=== PATIENT | female | born 1990 | race African-American/Black ===

== ENCOUNTER 2017-11-10 07:57 | Inpatient (IN) | payer BC ==
[2017-11-10] MEDS ORDERED: Sodium Chloride 0.9% 10 ML Syringe FLUSH PRN ×2 (08:40→18:14)
[2017-11-10] MEDS ORDERED: Ampicillin 2 GM in Sodium Chloride 0.9% 100 ML IV ONE (09:00)
[2017-11-10] MEDS ORDERED: Oxytocin/Lactated Ringers 10 UNIT/1,000 ML BAG IV SCH ×2 (09:00)
[2017-11-10] MEDS: Lactated Ringers 1,000 ML IV SCH ×4 (09:13→18:34)
[2017-11-10] MEDS ORDERED: fentaNYL 100 MCG/2 ML SDV EPIDUR PRN (10:05)
[2017-11-10] MEDS ORDERED: Ondansetron 4 MG/2 ML SDV IVPUSH PRN ×2 (10:05→19:07)
[2017-11-10] MEDS ORDERED: ePHEDrine 50 MG/ML SDV IVPUSH PRN ×3 (10:05→20:43)
--- NOTE | 2017-11-10 10:08 | PCM.PREANE ---
Preanesthetic Assessment - Anesthesia/Transfusion/Family Hx Anesthesia History: Prior Anesthesia Without Reaction (epidural only) Family History of Anesthesia Reaction: No Transfusion History: No Prior Transfusion(s) Intubation History: Unknown - Review of Systems General: No Symptoms Pulmonary: No Symptoms Cardiovascular: No Symptoms Gastrointestinal: No Symptoms Neurological: No Symptoms Other: Reports: None - Physical Assessment NPO Status Date: 11/09/17 NPO Status Time: 18:00 Pulse: 63 O2 Sat by Pulse Oximetry: 100 Respiratory Rate: 15 Blood Pressure: 110/63 Temperature: 36.3 C Vital Signs: Last Vital Signs Temp 36.3 C 11/10/17 08:25 Pulse 63 11/10/17 08:25 Resp 15 11/10/17 08:25 BP 110/63 11/10/17 08:25 Pulse Ox 100 11/10/17 08:25 Height: 1.65 m Weight: 85.275 kg ASA Class: 2 Mental Status: Alert & Oriented x3 Airway Class: Mallampati = 2 Dentition: Reports: Normal Dentition, Caries Thyro-Mental Finger Breadths: 3 Mouth Opening Finger Breadths: 3 ROM/Head Extension: Full Lungs: Clear to Auscultation, Normal Respiratory Effort Cardiovascular: Regular Rate, Regular Rhythm, No Murmurs - Lab Values: Laboratory Last Values WBC 7.12 K/mm3 (3.98-10.04) 11/10/17 09:05 RBC 4.10 M/mm3 (3.98-5.22) 11/10/17 09:05 Hgb 9.2 gm/L (11.2-15.7) L 11/10/17 09:05 Hct 28.7 % (34.1-44.9) L 11/10/17 09:05 MCV 70.0 fl (79.4-94.8) L 11/10/17 09:05 MCH 22.4 pg (25.6-32.2) L 11/10/17 09:05 MCHC 32.1 g/dl (32.2-35.5) L 11/10/17 09:05 RDW Std Deviation 43.0 fL (36.4-46.3) 11/10/17 09:05 Plt Count 200 K/mm3 (182-369) 11/10/17 09:05 Neut % (Auto) 70.5 % (34.0-71.1) 11/10/17 09:05 Lymph % (Auto) 18.3 % (19.3-51.7) L 11/10/17 09:05 Spencer % (Auto) 9.8 % (4.7-12.5) 11/10/17 09:05 Eos % (Auto) 0.3 (0.7-5.8) L 11/10/17 09:05 Baso % (Auto) 0.1 % (0.1-1.2) 11/10/17 09:05 Neut # (Auto) 5.02 K/mm3 (1.56-6.13) 11/10/17 09:05 Lymph # (Auto) 1.30 K/mm3 (1.18-3.74) 11/10/17 09:05 Spencer # (Auto) 0.70 K/mm3 (0.24-0.36) H 11/10/17 09:05 Eos # (Auto) 0.02 K/mm3 (0.04-0.36) L 11/10/17 09:05 Baso # (Auto) 0.01 K/mm3 (0.01-0.08) 11/10/17 09:05 Manual Slide Review Abnormal smear 11/10/17 09:05 Above labs reviewed and noted and within acceptable ranges to proceed with scheduled procedure. 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: - SUBSTANCE USE Smoking Status *Q: Never Smoker Second Hand Smoke Exposure: No Recreational Drug Use History: No - HOME MEDS Home Medications: Home Meds Benzocaine/Menthol [Dermoplast Pain Relief [place]] 1 spray TOP ASDIRECTED PRN #0 canister 09/17/15 [Rx] Docusate Sodium [Colace] 100 mg PO BID PRN #0 cap 09/17/15 [Rx] Ibuprofen [Motrin] 600 mg PO Q4H PRN #0 tablet 09/17/15 [Rx] PNV95/Ferrous Fumarate/FA [ Tablet] 1 tab PO DAILY 10/20/16 [History] - CURRENT (IN HOUSE) MEDS Current Meds: Current Medications Ephedrine Sulfate (Ephedrine Sulfate) 5 mg IVPUSH ASDIRECTED PRN PRN Reason: Hypotension Fentanyl (Sublimaze) 100 mcg EPIDUR Q3H PRN PRN Reason: Pain Fentanyl/Bupivacaine HCl (Fentanyl/Bupivacaine/Ns 2 Mcg-0.125% 100 Ml) 100 ml EPIDUR ASDIRECTED MAULIK Ampicillin Sodium 1 gm/ Sodium (Chloride) 100 mls @ 200 mls/hr IV Q4H MAULIK Lactated Ringer's (Ringers, Lactated) 1,000 mls @ 100 mls/hr IV ASDIRECTED MAULIK Last Admin: 11/10/17 10:01 Dose: 100 mls/hr Oxytocin/Lactated Ringer's (Pitocin In Lr 10 Units/1,000 Ml) 10 unit in 1,000 mls @ 12 mls/hr IV TITRATE MAULIK; 2 MUNITS/MIN PRN Reason: Protocol Oxytocin/Lactated Ringer's (Pitocin In Lr 10 Units/1,000 Ml) 10 unit in 1,000 mls @ 500 mls/hr IV ASDIRECTED MAULIK PRN Reason: Protocol Ondansetron HCl (Zofran) 4 mg IVPUSH ONETIME PRN PRN Reason: Nausea/Vomiting Sodium Chloride (Saline Flush) 10 ml FLUSH ASDIRECTED PRN PRN Reason: Keep Vein Open Discontinued Medications Ampicillin Sodium 2 gm/ Sodium (Chloride) 100 mls @ 200 mls/hr IV ONETIME ONE Stop: 11/10/17 09:29 Last Admin: 11/10/17 09:14 Dose: 200 mls/hr
[2017-11-10] MEDS ORDERED: Bupivacaine/fentaNYL/NS 100 ML Bag EPIDUR SCH (10:15)
[2017-11-10] MEDS: Ampicillin 1 GM in Sodium Chloride 0.9% 100 ML IV SCH ×2 (12:56→16:58)
--- NOTE | 2017-11-10 14:21 | PCM.LDHP ---
L&D History of Present Illness - General Date of Service: 11/10/17 Admit Problem/Dx: Admission Diagnosis/Problem Admission Diagnosis/Problem Source of Information: Patient History Limitations: Reports: No Limitations - History of Present Illness Introduction:: 27 year old at 39w6d here with painful, regular uterine contractions. Breathing through them. Requesting epidural and was 2.5 in clinic. Unable to tolerate good vaginal exam. 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: Social & Family History - Family History Family Medical History: Noncontributory - Tobacco Use Smoking Status *Q: Never Smoker Second Hand Smoke Exposure: No - Caffeine Use Caffeine Use: Reports: Tea - Recreational Drug Use Recreational Drug Use: No H&P Review of Systems - Review of Systems: Review Of Systems: See Below General: Reports: No Symptoms HEENT: Reports: No Symptoms Pulmonary: Reports: No Symptoms Cardiovascular: Reports: No Symptoms Gastrointestinal: Reports: No Symptoms Genitourinary: Reports: Other Musculoskeletal: Reports: No Symptoms Skin: Reports: No Symptoms Psychiatric: Reports: No Symptoms Neurological: Reports: No Symptoms Hematologic/Lymphatic: Reports: No Symptoms Immunologic: Reports: No Symptoms L&D Exam - Exam Exam: See Below - Vital Signs Vital Signs: Last Vital Signs Temp 36.3 C 11/10/17 10:22 Pulse 99 11/10/17 12:00 Resp 15 11/10/17 10:22 BP 112/78 11/10/17 12:00 Pulse Ox 100 11/10/17 10:22 Weight: 85.275 kg - OB Specific Contraction Intensity: Strong Movement: Active Heart Tones: Present Heart Tones per Min: 150 Heart Rate (FHR) Variability: Moderate (6-25 bmp) Presentation: Vertex - Francis Score Francis Score Cervix Position: Anterior Francis Score Consistency: Medium Francis Score Effacement: >80% Francis Score Dilation: 1-2 cm Francis Score Infant's Station: -2 Francis Score Total: 8 - Exam General: Alert, Oriented HEENT: PERRLA, Conjunctiva Clear, EACs Clear, EOMI, Hearing Intact, Mucosa Moist & Manti, Nares Patent, Normal Nasal Septum, Posterior Pharynx Clear, TMs Clear Neck: Supple, Trachea Midline Lungs: Clear to Auscultation, Normal Respiratory Effort Cardiovascular: Regular Rate, Regular Rhythm GI/Abdominal Exam: Normal Bowel Sounds, Soft, Non-Tender, No Organomegaly, No Distention, No Abnormal Bruit, No Mass, Pelvis Stable Rectal Exam: Normal Exam, Normal Rectal Tone Genitourinary: Normal external exam Back Exam: Normal Inspection, Full Range of Motion Extremities: Normal Inspection, Normal Range of Motion, Non-Tender, No Pedal Edema, Normal Capillary Refill Skin: Warm, Dry, Intact Neurological: Cranial Nerves Intact, Reflexes Equal Bilateral Psychiatric: Alert, Normal Affect, Normal Mood - Patient Data Lab Results Last 24 hrs: Laboratory Results - last 24 hr 11/10/17 Range/Units 09:05 WBC 7.12 (3.98-10.04) K/mm3 RBC 4.10 (3.98-5.22) M/mm3 Hgb 9.2 L (11.2-15.7) gm/L Hct 28.7 L (34.1-44.9) % MCV 70.0 L (79.4-94.8) fl MCH 22.4 L (25.6-32.2) pg MCHC 32.1 L (32.2-35.5) g/dl RDW Std Deviation 43.0 (36.4-46.3) fL Plt Count 200 (182-369) K/mm3 Neut % (Auto) 70.5 (34.0-71.1) % Lymph % (Auto) 18.3 L (19.3-51.7) % Dickens % (Auto) 9.8 (4.7-12.5) % Eos % (Auto) 0.3 L (0.7-5.8) Baso % (Auto) 0.1 (0.1-1.2) % Neut # (Auto) 5.02 (1.56-6.13) K/mm3 Lymph # (Auto) 1.30 (1.18-3.74) K/mm3 Dick[place] # (Auto) 0.70 H (0.24-0.36) K/mm3 Eos # (Auto) 0.02 L (0.04-0.36) K/mm3 Baso # (Auto) 0.01 (0.01-0.08) K/mm3 Manual Slide Review Abnormal smear Result Diagrams: 11/10/17 09:05 Problem List Initiated/Reviewed/Updated: Yes Orders Last 24hrs: Active Orders 24 hr Category Date Time Status Activity as Tolerated [RC] PFP Care 11/10/17 08:40 Active Communication Order [RC] ASDIRECTED Care 11/10/17 08:40 Active Notify Provider [RC] ASDIRECTED Care 11/10/17 10:05 Active Notify Provider [RC] PFP Care 11/10/17 08:40 Active Notify Provider [RC] PRN Care 11/10/17 08:40 Active Peripheral IV Care [RC] . DIRECTED Care 11/10/17 08:40 Active Pulse Oximetry [RC] ASDIRECTED Care 11/10/17 10:05 Active Vital Signs [RC] PER UNIT ROUTINE Care 11/10/17 08:40 Active Regular Diet [DIET] Diet 11/10/17 Lunch Active Ampicillin 1 gm Med 11/10/17 13:00 Active Sodium Chloride 0.9% [Normal Saline] 100 ml IV Q4H Bupivacaine/fentaNYL/NS [fentaNYL/Bupivacaine/NS 2 MCG- Med 11/10/17 10:15 Active 0.125% 100 ML] 100 ml EPIDUR ASDIRECTED Lactated Ringers [Ringers, Lactated] 1,000 ml Med 11/10/17 08:45 Active IV ASDIRECTED Ondansetron [Zofran] Med 11/10/17 10:05 Active 4 mg IVPUSH ONETIME PRN Oxytocin/Lactated Ringers [Pitocin in LR 10 Units/1,000 Med 11/10/17 09:00 Active ML] 10 unit in 1,000 ml IV ASDIRECTED Oxytocin/Lactated Ringers [Pitocin in LR 10 Units/1,000 Med 11/10/17 09:00 Active ML] 10 unit in 1,000 ml IV TITRATE Sodium Chloride 0.9% [Saline Flush] Med 11/10/17 08:40 Active 10 ml FLUSH ASDIRECTED PRN ePHEDrine [ePHEDrine Sulfate] Med 11/10/17 10:05 Active 5 mg IVPUSH ASDIRECTED PRN fentaNYL [Sublimaze] Med 11/10/17 10:05 Active 100 mcg EPIDUR Q3H PRN Electronic Heart Tones Ext w TOCO [WOMSER] Oth 11/10/17 08:40 Ordered Routine Electronic Heart Tones Internal [WOMSER] Per Unit Oth 11/10/17 08:40 Ordered Routine Peripheral IV Insertion Adult [OM.PC] Routine Oth 11/10/17 08:40 Ordered Resuscitation Status Routine Resus Stat 11/10/17 08:40 Ordered Medication Orders Ephedrine Sulfate (Ephedrine Sulfate) 5 mg IVPUSH ASDIRECTED PRN PRN Reason: Hypotension Fentanyl (Sublimaze) 100 mcg EPIDUR Q3H PRN PRN Reason: Pain Fentanyl/Bupivacaine HCl (Fentanyl/Bupivacaine/Ns 2 Mcg-0.125% 100 Ml) 100 ml EPIDUR ASDIRECTED MAULIK Ampicillin Sodium 1 gm/ Sodium (Chloride) 100 mls @ 200 mls/hr IV Q4H [facility] Last Admin: 11/10/17 12:56 Dose: 200 mls/hr Lactated Ringer's (Ringers, Lactated) 1,000 mls @ 100 mls/hr IV ASDIRECTED MAULIK Last Admin: 11/10/17 10:55 Dose: 100 mls/hr Infusion: 11/10/17 10:55 Dose: 100 mls/hr Admin: 11/10/17 10:01 Dose: 100 mls/hr Infusion: 11/10/17 10:01 Dose: 100 mls/hr Admin: 11/10/17 09:13 Dose: 100 mls/hr Oxytocin/Lactated Ringer's (Pitocin In Lr 10 Units/1,000 Ml) 10 unit in 1,000 mls @ 12 mls/hr IV TITRATE MAULIK; 2 MUNITS/MIN PRN Reason: Protocol Last Admin: 11/10/17 12:18 Dose: 2 munits/min, 12 mls/hr Oxytocin/Lactated Ringer's (Pitocin In Lr 10 Units/1,000 Ml) 10 unit in 1,000 mls @ 500 mls/hr IV ASDIRECTED MAULIK PRN Reason: Protocol Ondansetron HCl (Zofran) 4 mg IVPUSH ONETIME PRN PRN Reason: Nausea/Vomiting Sodium Chloride (Saline Flush) 10 ml FLUSH ASDIRECTED PRN PRN Reason: Keep Vein Open Assessment/Plan Comment:: Term labor. Desires epidural. Can augment with AROM or pitocin if needed after epidural. Given 2nd baby and degree of discomfort will plan that so certain able to get antibiotics in.
--- NOTE | 2017-11-10 14:22 | PCM.PNLD ---
Labor Progress Note - VS & Meds Vital Signs: Last Vital Signs Temp 36.3 C 11/10/17 10:22 Pulse 99 11/10/17 12:00 Resp 15 11/10/17 10:22 BP 112/78 11/10/17 12:00 Pulse Ox 100 11/10/17 10:22 Active Medications: Current Medications Ephedrine Sulfate (Ephedrine Sulfate) 5 mg IVPUSH ASDIRECTED PRN PRN Reason: Hypotension Fentanyl (Sublimaze) 100 mcg EPIDUR Q3H PRN PRN Reason: Pain Fentanyl/Bupivacaine HCl (Fentanyl/Bupivacaine/Ns 2 Mcg-0.125% 100 Ml) 100 ml EPIDUR ASDIRECTED MAULIK Ampicillin Sodium 1 gm/ Sodium (Chloride) 100 mls @ 200 mls/hr IV Q4H MAULIK Last Admin: 11/10/17 12:56 Dose: 200 mls/hr Lactated Ringer's (Ringers, Lactated) 1,000 mls @ 100 mls/hr IV ASDIRECTED MAULIK Last Admin: 11/10/17 10:55 Dose: 100 mls/hr Oxytocin/Lactated Ringer's (Pitocin In Lr 10 Units/1,000 Ml) 10 unit in 1,000 mls @ 12 mls/hr IV TITRATE MAULIK; 2 MUNITS/MIN PRN Reason: Protocol Last Admin: 11/10/17 12:18 Dose: 2 munits/min, 12 mls/hr Oxytocin/Lactated Ringer's (Pitocin In Lr 10 Units/1,000 Ml) 10 unit in 1,000 mls @ 500 mls/hr IV ASDIRECTED MAULIK PRN Reason: Protocol Ondansetron HCl (Zofran) 4 mg IVPUSH ONETIME PRN PRN Reason: Nausea/Vomiting Sodium Chloride (Saline Flush) 10 ml FLUSH ASDIRECTED PRN PRN Reason: Keep Vein Open Discontinued Medications Ampicillin Sodium 2 gm/ Sodium (Chloride) 100 mls @ 200 mls/hr IV ONETIME ONE Stop: 11/10/17 09:29 Last Admin: 11/10/17 09:14 Dose: 200 mls/hr - Uterine Contractions Uterine Monitoring Mode: External [place] Contraction Intensity: Strong Uterine Resting Tone: Soft - Monitoring Heart Rate (FHR) Variability: Moderate (6-25 bmp) Strip Review: Category I - Vaginal Exam Dilation (cm): 9 Effacement (Percent): 90 Station: -1 Cervical Position: Anterior Sterile Vaginal Exam Performed By: Cecilia Huynh - Labor Progress (Free Text) Labor Progress: Good progress. Nearly complete with BBOW. AROM clear fluid. Did start 2 mu/min pitocin 3 hours after epidural at which time she was 5 cm. Comfortable now.
[2017-11-10] MEDS ORDERED: Metoclopramide 10 MG/2 ML SDV ONE (18:10)
[2017-11-10] MEDS ORDERED: Citric Acid/Sodium Citrate Solution 30 ML Cup ONE (18:10)
[2017-11-10] MEDS ORDERED: Morphine PF 1 MG/ML Amp ONE (18:12)
[2017-11-10] MEDS ORDERED: Metoclopramide 10 MG/2 ML SDV IVPUSH ONE (18:14)
[2017-11-10] MEDS ORDERED: Citric Acid/Sodium Citrate Solution 30 ML Cup PO ONE (18:14)
[2017-11-10] MEDS ORDERED: Lactated Ringers 1,000 ML IV SCH (18:15)
[2017-11-10] MEDS ORDERED: Bupivacaine 0.5% 30 ML SDV ONE (18:24)
[2017-11-10] MEDS ORDERED: ceFAZolin 1 GM Vial ONE (18:44)
[2017-11-10] MEDS ORDERED: Lidocaine 2% with EPINEPHrine 1:200,000 20 ML SDV ONE (18:44)
[2017-11-10] MEDS ORDERED: Lactated Ringers 2,000 ML ONE (18:44)
[2017-11-10] MEDS ORDERED: fentaNYL 100 MCG/2 ML SDV ONE (18:44)
[2017-11-10] MEDS ORDERED: Oxytocin 10 Units/1 ML SDV ONE (18:44)
[2017-11-10] MEDS ORDERED: Ondansetron 4 MG/2 ML SDV ONE (18:44)
[2017-11-10] MEDS ORDERED: Ketorolac 30 MG/ML SDV ONE (18:44)
[2017-11-10] MEDS ORDERED: Phenylephrine 1% 10 MG/ML SDV ONE (18:44)
[2017-11-10] MEDS ORDERED: Meperidine PF 50 MG/ML Syringe IVPUSH PRN (19:07)
[2017-11-10] MEDS ORDERED: diphenhydrAMINE 50 MG/ML SDV IVPUSH PRN ×2 (19:07→20:43)
[2017-11-10] MEDS ORDERED: fentaNYL 100 MCG/2 ML SDV IVPUSH PRN (19:07)
[2017-11-10] MEDS ORDERED: Phenylephrine 1 MG in Sodium Chloride 0.9% 10 ML IV SCH (19:15)
[2017-11-10] MEDS ORDERED: Meperidine PF 50 MG/ML Syringe ONE (19:35)
--- NOTE | 2017-11-10 19:54 | PCM.POSTAN ---
POST ANESTHESIA ASSESSMENT - MENTAL STATUS Mental Status: Alert - VITAL SIGNS Pulse Rate: 97 SaO2: 96 Resp Rate: 19 Blood Pressure: 110/73 Temperature: 37.5 C - RESPIRATORY Respiratory Status: Respiratory Rate WNL, Airway Patent, O2 Saturation Stable - CARDIOVASCULAR CV Status: Pulse Rate WNL, Blood Pressure Stable - GASTROINTESTINAL GI Status: No Symptoms - POST OP HYDRATION Hydration Status: Adequate & Stable
--- NOTE | 2017-11-10 20:14 | PCM.OPNOTE ---
- General Post-Op/Procedure Note Date of Surgery/Procedure: 11/10/17 Operative Procedure(s): primary section Findings: viable female, face presentation, apgars 8/9, normal uterus tubes and ovaries at 1931 Pre Op Diagnosis: face presentation Post-Op Diagnosis: Same Anesthesia Technique: Epidural Primary Surgeon: Cecilia Huynh Anesthesia Provider: Chasity Lucas Saw Feeder: David Rothman Jr Role of Saw Feeder: retraction, pt safety Fluid Replacement, Intraop: 1,200 Output, Urine Amount: 200 EBL in mLs: 600 Complications: None Condition: Good Free Text/Narrative:: Intake & Output 11/10/17 11/10/17 11/10/17 06:59 14:59 22:59 Output Total 200 Balance -200 The patient was taken to the operating room where epidural anesthesia was dosed to surgical levels without difficulty. The patient was prepped and draped in the usual sterile fashion in the dorsal supine position with a leftward tilt. A Pfannenstiel skin incision was made with the scalpel and carried through to the underlying layer of fascia. The fascia was incised in the midline and extended laterally using Johnson scissors. Cammie clamps were used to elevate the superior aspect of the fascial incision, which was elevated, and the underlying rectus muscles were dissected off bluntly and using Johnson scissors. Attention was then turned to the inferior aspect of the fascial incision, which in similar fashion was grasped with Cammie clamps, elevated, and the underlying rectus muscles were dissected off bluntly and using the johnson. The rectus muscles were dissected in the midline. The peritoneum was entered bluntly; this incision was extended superiorly and inferiorly with good visualization of the bladder. The bladder blade was inserted. The vesicouterine peritoneum was identified and entered sharply using Metzenbaum scissors. This incision was extended laterally and the bladder flap was created digitally. The bladder blade was reinserted. The lower uterine segment was incised in a transverse fashion using the scalpel and with digital traction. Clear fluid was noted. The was subsequently delivered by bringing the head to the incision. Body and shoulders followed without difficulty. The cord was clamped and cut. 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 The placenta was delivered spontaneously intact with a three-vessel cord noted. The uterus was exteriorized and cleared of all clots and debris. The uterine incision was repaired in 2 layers using 0 monocryl. Hemostasis was visualized. Hemostasis was visualized bilaterally. The uterus was returned to the abdomen. The uterine incision was reexamined and it was noted to be hemostatic. The pelvis was copiously irrigated. The fascia was closed with 1 PDS suture, and the skin was closed with 3-0 monocryl. Sponge, lap, and instrument counts were correct x2. The patient was stable at the completion of the procedure and was subsequently transferred to the recovery room in stable condition.
[2017-11-10] MEDS ORDERED: Naloxone 0.4 MG/ML SDV IVPUSH PRN (20:43)
[2017-11-10] MEDS ORDERED: Docusate Sodium 100 MG Cap PO PRN (20:43)
[2017-11-10] MEDS ORDERED: Dextrose 5%-Lactated Ringers 1,000 ML IV SCH (20:43)
[2017-11-10] MEDS ORDERED: Lanolin 100% Cream 7 GM Tube TOP PRN (20:43)
[2017-11-10] MEDS ORDERED: Ketorolac 30 MG/ML SDV IVPUSH SCH (21:00)
[2017-11-10] MEDS ORDERED: Bupivacaine 0.25% 10 ML SDV ONE (22:22)
[2017-11-10] MEDS: Simethicone 80 MG Tab.Chew PO SCH (23:47)
[2017-11-11] MEDS: Ketorolac 30 MG/ML SDV IVPUSH SCH ×3 (01:05→13:09)
[2017-11-11] MEDS: Simethicone 80 MG Tab.Chew PO SCH ×4 (08:06→22:07)
--- NOTE | 2017-11-11 08:17 | PCM.PNPP ---
- General Info Date of Service: 11/11/17 Functional Status: Reports: Pain Controlled - Review of Systems General: Reports: No Symptoms HEENT: Reports: No Symptoms Pulmonary: Reports: No Symptoms Cardiovascular: Reports: No Symptoms Gastrointestinal: Reports: No Symptoms Genitourinary: Reports: No Symptoms Musculoskeletal: Reports: No Symptoms Skin: Reports: No Symptoms Neurological: Reports: No Symptoms Psychiatric: Reports: No Symptoms - General Info Date of Service: 11/11/17 - Patient Data Vital Signs - Most Recent: Last Vital Signs Temp 37.1 C 11/11/17 01:01 Pulse 110 H 11/11/17 01:02 Resp 18 11/11/17 06:00 BP 108/51 L 11/11/17 01:01 Pulse Ox 97 11/11/17 06:00 Weight - Most Recent: 85.275 kg I&O - Last 24 Hours: Intake & Output 11/10/17 11/11/17 11/11/17 22:59 06:59 14:59 Intake Total 1375 Output Total 525 1750 Balance 850 -1750 Lab Results - Last 24 Hours: Laboratory Results - last 24 hr 11/10/17 11/10/17 11/11/17 Range/Units 09:05 09:05 06:30 WBC 7.12 12.54 H (3.98-10.04) K/mm3 RBC 4.10 3.12 L (3.98-5.22) M/mm3 Hgb 9.2 L 7.0 L* (11.2-15.7) gm/L Hct 28.7 L 22.4 L (34.1-44.9) % MCV 70.0 L 71.8 L (79.4-94.8) fl MCH 22.4 L 22.4 L (25.6-32.2) pg MCHC 32.1 L 31.3 L (32.2-35.5) g/dl RDW Std Deviation 43.0 43.7 (36.4-46.3) fL Plt Count 200 161 L (182-369) K/mm3 Neut % (Auto) 70.5 84.0 H (34.0-71.1) % Lymph % (Auto) 18.3 L 10.2 L (19.3-51.7) % [place] % (Auto) 9.8 5.1 (4.7-12.5) % Eos % (Auto) 0.3 L 0.2 L (0.7-5.8) Baso % (Auto) 0.1 0.1 (0.1-1.2) % Neut # (Auto) 5.02 10.53 H (1.56-6.13) K/mm3 Lymph # (Auto) 1.30 1.28 (1.18-3.74) K/mm3 [place] # (Auto) 0.70 H 0.64 H (0.24-0.36) K/mm3 Eos # (Auto) 0.02 L 0.03 L (0.04-0.36) K/mm3 Baso # (Auto) 0.01 0.01 (0.01-0.08) K/mm3 Manual Slide Review Abnormal smear Abnormal smear Blood Type O POSITIVE Gel Antibody Screen Negative Med Orders - Current: Current Medications Diphenhydramine HCl (Benadryl) 25 mg IVPUSH Q6H PRN PRN Reason: Itching or Nausea Last Admin: 11/10/17 22:13 Dose: 25 mg Docusate Sodium (Colace) 100 mg PO Q12H PRN PRN Reason: Constipation Emollient Ointment (Lansinoh Hpa) 0 gm TOP ASDIRECTED PRN PRN Reason: Sore Nipples Ephedrine Sulfate (Ephedrine Sulfate) 5 mg IVPUSH SEECOMMENT PRN PRN Reason: Other Ibuprofen (Motrin) 600 mg PO Q6H PRN PRN Reason: mild pain or fever Ketorolac Tromethamine (Toradol) 30 mg IVPUSH Q6H [facility] Stop: 11/11/17 13:31 Last Admin: 11/11/17 08:04 Dose: 30 mg Naloxone HCl (Narcan) 0.1 mg IVPUSH SEECOMMENT PRN PRN Reason: Respiratory Depression Oxycodone/Acetaminophen (Percocet 325-5 Mg) 2 tab PO Q6H PRN PRN Reason: Pain (moderate 4-6) Simethicone (Simethicone) 80 mg PO [facility] Last Admin: 11/11/17 08:06 Dose: 80 mg Discontinued Medications Bupivacaine HCl (Marcaine 0.5%) Confirm Administered Dose 30 ml .ROUTE .STK-MED ONE Stop: 02/18/18 18:25 Last Admin: 11/10/17 19:07 Dose: 20 ml Cefazolin Sodium (Ancef) Confirm Administered Dose 2 gm .ROUTE .STK-MED ONE Stop: 11/10/17 18:45 Citric Acid/Sodium Citrate (Bicitra Solution) Confirm Administered Dose 30 ml .ROUTE .STK-MED ONE Stop: 11/10/17 18:11 Last Admin: 11/10/17 22:57 Dose: Not Given Citric Acid/Sodium Citrate (Bicitra Solution) 30 ml PO ONETIME ONE Stop: 11/10/17 18:15 Last Admin: 11/10/17 18:34 Dose: 30 ml Diphenhydramine HCl (Benadryl) 25 mg IVPUSH Q6H PRN PRN Reason: pruritis Ephedrine Sulfate (Ephedrine Sulfate) 5 mg IVPUSH ASDIRECTED PRN PRN Reason: Hypotension Ephedrine Sulfate (Ephedrine Sulfate) 5 mg IVPUSH ASDIRECTED PRN PRN Reason: Hypotension Fentanyl (Sublimaze) 100 mcg EPIDUR Q3H PRN PRN Reason: Pain Fentanyl (Sublimaze) Confirm Administered Dose 100 mcg .ROUTE .STK-MED ONE Stop: 11/10/17 18:45 Fentanyl (Sublimaze) 50 mcg IVPUSH Q5M PRN PRN Reason: Pain Last Admin: 11/10/17 20:20 Dose: 50 mcg Fentanyl/Bupivacaine HCl (Fentanyl/Bupivacaine/Ns 2 Mcg-0.125% 100 Ml) 100 ml EPIDUR ASDIRECTED [facility] Ampicillin Sodium 2 gm/ Sodium (Chloride) 100 mls @ 200 mls/hr IV ONETIME ONE Stop: 11/10/17 09:29 Last Admin: 11/10/17 09:14 Dose: 200 mls/hr Ampicillin Sodium 1 gm/ Sodium (Chloride) 100 mls @ 200 mls/hr IV Q4H [facility] Last Admin: 11/10/17 16:58 Dose: 200 mls/hr Lactated Ringer's (Ringers, Lactated) 1,000 mls @ 100 mls/hr IV ASDIRECTED [facility] Last Admin: 11/10/17 18:34 Dose: 100 mls/hr Oxytocin/Lactated Ringer's (Pitocin In Lr 10 Units/1,000 Ml) 10 unit in 1,000 mls @ 12 mls/hr IV TITRATE MA[facility]IK; 2 MUNITS/MIN PRN Reason: Protocol Last Titration: 11/10/17 16:23 Dose: 6 munits/min, 36 mls/hr Oxytocin/Lactated Ringer's (Pitocin In Lr 10 Units/1,000 Ml) 10 unit in 1,000 mls @ 500 mls/hr IV ASDIRECTED [facility] PRN Reason: Protocol Lactated Ringer's (Ringers, Lactated) 1,000 mls @ 125 mls/hr IV ASDIRECTED [facility] Lactated Ringer's (Ringers, Lactated) Confirm Administered Dose 2,000 mls @ as directed .ROUTE .STK-MED ONE Stop: 11/10/17 18:45 Phenylephrine HCl 1 mg/ Sodium (Chloride) 10.1 mls @ 1 mls/sec IV TITRATE [facility] PRN Reason: Protocol Dextrose/Lactated Ringer's (Dextrose 5%-Lactated Ringers) 1,000 mls @ 125 mls/ hr IV ASDIRECTED [facility] Stop: 11/11/17 04:42 Last Admin: 11/10/17 22:37 Dose: 125 mls/hr Ibuprofen (Motrin) 600 mg PO Q6H PRN PRN Reason: mild pain or fever Ketorolac Tromethamine (Toradol) Confirm Administered Dose 30 mg .ROUTE .STK- MED ONE Stop: 11/10/17 18:45 Ketorolac Tromethamine (Toradol) 30 mg IVPUSH Q6H [facility] Stop: 11/11/17 09:01 Last Admin: 11/10/17 22:58 Dose: Not Given Lidocaine/Epinephrine (Xylocaine-Mpf 2%-Epi 1:200,000) Confirm Administered Dose 20 ml .ROUTE .STK-MED ONE Stop: 11/10/17 18:45 Meperidine HCl (Demerol) 12.5 mg IVPUSH ONETIME PRN PRN Reason: shivering Meperidine HCl (Demerol) Confirm Administered Dose 50 mg .ROUTE .STK-MED ONE Stop: 11/10/17 19:36 Metoclopramide HCl (Reglan) Confirm Administered Dose 10 mg .ROUTE .STK-MED ONE Stop: 11/10/17 18:11 Last Admin: 11/10/17 22:57 Dose: Not Given Metoclopramide HCl (Reglan) 10 mg IVPUSH ONETIME ONE Stop: 11/10/17 18:15 Last Admin: 11/10/17 18:35 Dose: 10 mg Morphine Sulfate (Duramorph Pf) Confirm Administered Dose 1 mg .ROUTE .STK-MED ONE Stop: 11/10/17 18:13 Ondansetron HCl (Zofran) 4 mg IVPUSH ONETIME PRN PRN Reason: Nausea/Vomiting Ondansetron HCl (Zofran) Confirm Administered Dose 4 mg .ROUTE .STK-MED ONE Stop: 11/10/17 18:45 Ondansetron HCl (Zofran) 4 mg IVPUSH ONETIME PRN PRN Reason: Nausea/Vomiting Oxytocin (Pitocin) Confirm Administered Dose 10 unit .ROUTE .STK-MED ONE Stop: 11/10/17 18:45 Phenylephrine HCl (Tl-Synephrine) Confirm Administered Dose 10 mg .ROUTE .STK- MED ONE Stop: 11/10/17 18:45 Sodium Chloride (Saline Flush) 10 ml FLUSH ASDIRECTED PRN PRN Reason: Keep Vein Open Sodium Chloride (Saline Flush) 10 ml FLUSH ASDIRECTED PRN PRN Reason: Keep Vein Open - Interaction Infant Disposition, : [place] at Bedside Support Person: - Recovery Exam Fundal Tone: Firm Fundal Level: 1 Fingerbreadths Below Umbilicus Fundal Placement: Midline Lochia Amount: Small Lochia Color: Rubra/Red Perineum Description: Intact, Minimal Bruising/Swelling Bladder Status: Indwelling Catheter in Place - Exam General: Alert, Oriented HEENT: Pupils Equal Neck: Supple Lungs: Clear to Auscultation, Normal Respiratory Effort Cardiovascular: Regular Rate, Regular Rhythm GI/Abdominal Exam: Normal Bowel Sounds, Soft, Non-Tender, No Organomegaly, No Distention, No Abnormal Bruit, No Mass, Pelvis Stable Extremities: Normal Inspection, Normal Range of Motion, Non-Tender, No Pedal Edema, Normal Capillary Refill Skin: Warm, Dry, Intact Wound/Incisions: Healing Well Neurological: No New Focal Deficit Psy/Mental Status: Alert, Normal Affect, Normal Mood - Problem List Review Problem List Initiated/Reviewed/Updated: Yes - My Orders Last 24 Hours: My Active Orders 11/10/17 08:40 Vital Signs [RC] PER UNIT ROUTINE Resuscitation Status Routine 02/18/18 20:43 Activity as Tolerated [RC] .PRN Antiembolic Devices [RC] PER UNIT ROUTINE Communication Order [RC] PER UNIT ROUTINE Communication Order [RC] PER UNIT ROUTINE Communication Order [RC] PER UNIT ROUTINE May Shower [RC] ASDIRECTED Notify Provider Intake and Out [RC] ASDIRECTED Vital Signs [RC] Q1HR Acetaminophen/oxyCODONE [Percocet 325-5 MG] 2 tab PO Q6H PRN Docusate Sodium [Colace] 100 mg PO Q12H PRN Lanolin [Lansinoh HPA] See Dose Instructions TOP ASDIRECTED PRN Naloxone [Narcan] 0.1 mg IVPUSH SEECOMMENT PRN diphenhydrAMINE [Benadryl] 25 mg IVPUSH Q6H PRN ePHEDrine [ePHEDrine Sulfate] 5 mg IVPUSH SEECOMMENT PRN Assess Lochia [WOMSER] Per Unit Routine Assess Uterine Involution [WOMSER] Per Unit Routine Heat Therapy [OM.PC] Routine Medication Administration Instruction [OM.PC] Routine Sequential Compression Device [OM.PC] Per Unit Routine 11/10/17 22:00 Simethicone 80 mg PO PCBED 11/11/17 01:30 Ketorolac [Toradol] 30 mg IVPUSH Q6H 11/11/17 16:00 Ibuprofen [Motrin] 600 mg PO Q6H PRN 11/11/17 20:07 Urinary Catheter Removal [RC] Per Unit Routine - Assessment Assessment:: S/P for face presentation. Doing well. No concerns. Ambulating, voiding and tolerating po's. - Plan Plan:: Face presentation. Doing well. No issues Routine care. Tolerating anemia well.
[2017-11-11] MEDS ORDERED: Ibuprofen 600 MG Tab PO PRN (15:00)
[2017-11-11] MEDS: Acetaminophen/oxyCODONE 325-5 MG Tab PO PRN (19:03)
[2017-11-11] MEDS: Ibuprofen 600 MG Tab PO PRN (22:05)
[2017-11-12] MEDS: Acetaminophen/oxyCODONE 325-5 MG Tab PO PRN ×3 (05:00→21:43)
[2017-11-12] MEDS: Ibuprofen 600 MG Tab PO PRN ×2 (07:53→21:48)
--- NOTE | 2017-11-12 08:51 | PCM.PNPP ---
- General Info Date of Service: 11/12/17 Functional Status: Reports: Pain Controlled - Review of Systems General: Reports: No Symptoms HEENT: Reports: No Symptoms Pulmonary: Reports: No Symptoms Cardiovascular: Reports: No Symptoms Gastrointestinal: Reports: No Symptoms Genitourinary: Reports: No Symptoms Musculoskeletal: Reports: No Symptoms Skin: Reports: No Symptoms Neurological: Reports: No Symptoms Psychiatric: Reports: No Symptoms - General Info Date of Service: 11/12/17 - Patient Data Vital Signs - Most Recent: Last Vital Signs Temp 37.2 C 11/12/17 02:14 Pulse 90 11/12/17 02:14 Resp 16 11/12/17 02:14 BP 120/82 11/12/17 02:14 Pulse Ox 99 11/12/17 02:14 Weight - Most Recent: 85.275 kg I&O - Last 24 Hours: Intake & Output 11/11/17 11/12/17 11/12/17 22:59 06:59 14:59 Output Total 1200 Balance -1200 Med Orders - Current: Current Medications Diphenhydramine HCl (Benadryl) 25 mg IVPUSH Q6H PRN PRN Reason: Itching or Nausea Last Admin: 11/10/17 22:13 Dose: 25 mg Docusate Sodium (Colace) 100 mg PO Q12H PRN PRN Reason: Constipation Emollient Ointment (Lansinoh Hpa) 0 gm TOP ASDIRECTED PRN PRN Reason: Sore Nipples Ephedrine Sulfate (Ephedrine Sulfate) 5 mg IVPUSH SEECOMMENT PRN PRN Reason: Other Ibuprofen (Motrin) 600 mg PO Q6H PRN PRN Reason: mild pain or fever Last Admin: 11/12/17 07:53 Dose: 600 mg Naloxone HCl (Narcan) 0.1 mg IVPUSH SEECOMMENT PRN PRN Reason: Respiratory Depression Oxycodone/Acetaminophen (Percocet 325-5 Mg) 2 tab PO Q6H PRN PRN Reason: Pain (moderate 4-6) Last Admin: 11/12/17 05:00 Dose: 2 tab Simethicone (Simethicone) 80 mg PO PCBED [facility] Last Admin: 11/11/17 22:07 Dose: 80 mg Discontinued Medications Bupivacaine HCl (Marcaine 0.5%) Confirm Administered Dose 30 ml .ROUTE .STK-MED ONE Stop: 11/10/17 18:25 Last Admin: 11/10/17 19:07 Dose: 20 ml Bupivacaine HCl (Sensorcaine-Mpf 0.25%) 10 ml .ROUTE .STK-MED ONE Stop: 11/10/17 22:23 Cefazolin Sodium (Ancef) Confirm Administered Dose 2 gm .ROUTE .STK-MED ONE Stop: 11/10/17 18:45 Citric Acid/Sodium Citrate (Bicitra Solution) Confirm Administered Dose 30 ml .ROUTE .[facility]-MED ONE Stop: 11/10/17 18:11 Last Admin: 11/10/17 22:57 Dose: Not Given Citric Acid/Sodium Citrate (Bicitra Solution) 30 ml PO ONETIME ONE Stop: 11/10/17 18:15 Last Admin: 11/10/17 18:34 Dose: 30 ml Diphenhydramine HCl (Benadryl) 25 mg IVPUSH Q6H PRN PRN Reason: pruritis Ephedrine Sulfate (Ephedrine Sulfate) 5 mg IVPUSH ASDIRECTED PRN PRN Reason: Hypotension Ephedrine Sulfate (Ephedrine Sulfate) 5 mg IVPUSH ASDIRECTED PRN PRN Reason: Hypotension Fentanyl (Sublimaze) 100 mcg EPIDUR Q3H PRN PRN Reason: Pain Fentanyl (Sublimaze) Confirm Administered Dose 100 mcg .ROUTE .[facility]-MED ONE Stop: 11/10/17 18:45 Fentanyl (Sublimaze) 50 mcg IVPUSH Q5M PRN PRN Reason: Pain Last Admin: 11/10/17 20:20 Dose: 50 mcg Fentanyl/Bupivacaine HCl (Fentanyl/Bupivacaine/Ns 2 Mcg-0.125% 100 Ml) 100 ml EPIDUR ASDIRECTED [facility] Ampicillin Sodium 2 gm/ Sodium (Chloride) 100 mls @ 200 mls/hr IV ONETIME ONE Stop: 11/10/17 09:29 Last Admin: 11/10/17 09:14 Dose: 200 mls/hr Ampicillin Sodium 1 gm/ Sodium (Chloride) 100 mls @ 200 mls/hr IV Q4H [facility] Last Admin: 11/10/17 16:58 Dose: 200 mls/hr Lactated Ringer's (Ringers, Lactated) 1,000 mls @ 100 mls/hr IV ASDIRECTED [facility] Last Admin: 11/10/17 18:34 Dose: 100 mls/hr Oxytocin/Lactated Ringer's (Pitocin In Lr 10 Units/1,000 Ml) 10 unit in 1,000 mls @ 12 mls/hr IV TITRATE [facility]IK; 2 MUNITS/MIN PRN Reason: Protocol Last Titration: 11/10/17 16:23 Dose: 6 munits/min, 36 mls/hr Oxytocin/Lactated Ringer's (Pitocin In Lr 10 Units/1,000 Ml) 10 unit in 1,000 mls @ 500 mls/hr IV ASDIRECTED [facility] PRN Reason: Protocol Lactated Ringer's (Ringers, Lactated) 1,000 mls @ 125 mls/hr IV ASDIRECTED [facility] Lactated Ringer's (Ringers, Lactated) Confirm Administered Dose 2,000 mls @ as directed .ROUTE .STK-MED ONE Stop: 11/10/17 18:45 Phenylephrine HCl 1 mg/ Sodium (Chloride) 10.1 mls @ 1 mls/sec IV TITRATE [facility] PRN Reason: Protocol Dextrose/Lactated Ringer's (Dextrose 5%-Lactated Ringers) 1,000 mls @ 125 mls/ hr IV ASDIRECTED [facility] Stop: 11/11/17 04:42 Last Admin: 11/10/17 22:37 Dose: 125 mls/hr Ibuprofen (Motrin) 600 mg PO Q6H PRN PRN Reason: mild pain or fever Ketorolac Tromethamine (Toradol) Confirm Administered Dose 30 mg .ROUTE .STK- MED ONE Stop: 11/10/17 18:45 Ketorolac Tromethamine (Toradol) 30 mg IVPUSH Q6H [facility] Stop: 11/11/17 09:01 Last Admin: 11/10/17 22:58 Dose: Not Given Ketorolac Tromethamine (Toradol) 30 mg IVPUSH Q6H [facility] Stop: 11/11/17 13:31 Last Admin: 11/11/17 13:09 Dose: 30 mg Lidocaine/Epinephrine (Xylocaine-Mpf 2%-Epi 1:200,000) Confirm Administered Dose 20 ml .ROUTE .STK-MED ONE Stop: 11/10/17 18:45 Meperidine HCl (Demerol) 12.5 mg IVPUSH ONETIME PRN PRN Reason: shivering Meperidine HCl (Demerol) Confirm Administered Dose 50 mg .ROUTE .STK-MED ONE Stop: 11/10/17 19:36 Metoclopramide HCl (Reglan) Confirm Administered Dose 10 mg .ROUTE .STK-MED ONE Stop: 11/10/17 18:11 Last Admin: 11/10/17 22:57 Dose: Not Given Metoclopramide HCl (Reglan) 10 mg IVPUSH ONETIME ONE Stop: 11/10/17 18:15 Last Admin: 11/10/17 18:35 Dose: 10 mg Morphine Sulfate (Duramorph Pf) Confirm Administered Dose 1 mg .ROUTE .STK-MED ONE Stop: 11/10/17 18:13 Ondansetron HCl (Zofran) 4 mg IVPUSH ONETIME PRN PRN Reason: Nausea/Vomiting Ondansetron HCl (Zofran) Confirm Administered Dose 4 mg .ROUTE .STK-MED ONE Stop: 11/10/17 18:45 Ondansetron HCl (Zofran) 4 mg IVPUSH ONETIME PRN PRN Reason: Nausea/Vomiting Oxytocin (Pitocin) Confirm Administered Dose 10 unit .ROUTE .STK-MED ONE Stop: 11/10/17 18:45 Phenylephrine HCl (Tl-Synephrine) Confirm Administered Dose 10 mg .ROUTE .STK- MED ONE Stop: 11/10/17 18:45 Sodium Chloride (Saline Flush) 10 ml FLUSH ASDIRECTED PRN PRN Reason: Keep Vein Open Sodium Chloride (Saline Flush) 10 ml FLUSH ASDIRECTED PRN PRN Reason: Keep Vein Open - Infant Interaction Disposition, : at Bedside Support Person: - Recovery Exam Fundal Tone: Firm Fundal Level: 1 Fingerbreadths Above Umbilicus Fundal Placement: Midline Lochia Amount: Small Lochia Color: Rubra/Red Perineum Description: Intact, Minimal Bruising/Swelling Episiotomy/Laceration: None Bladder Status: Voiding Urinary Elimination: Voided - Exam General: Alert, Oriented HEENT: Pupils Equal Neck: Supple Lungs: Clear to Auscultation, Normal Respiratory Effort Cardiovascular: Regular Rate, Regular Rhythm GI/Abdominal Exam: Normal Bowel Sounds, Soft, Non-Tender, No Organomegaly, No Distention, No Abnormal Bruit, No Mass, Pelvis Stable Extremities: Normal Inspection, Normal Range of Motion, Non-Tender, No Pedal Edema, Normal Capillary Refill Skin: Warm, Dry, Intact Wound/Incisions: Healing Well Neurological: No New Focal Deficit Psy/Mental Status: Alert, Normal Affect, Normal Mood - Problem List Review Problem List Initiated/Reviewed/Updated: Yes - My Orders Last 24 Hours: My Active Orders 11/11/17 16:00 Ibuprofen [Motrin] 600 mg PO Q6H PRN 11/11/17 16:54 Patient Status [ADT] Routine - Assessment Assessment:: S/P for face presentation. Doing well. No concerns. Ambulating, voiding and tolerating po's. - Plan Plan:: Face presentation. Doing well. No issues Routine care. Tolerating anemia well.
[2017-11-12] MEDS: Simethicone 80 MG Tab.Chew PO SCH ×4 (09:51→22:00)
--- NOTE | 2017-11-13 09:19 | PCM.DCSUM1 ---
Discharge Summary - Hospital Course Brief History: Admitted in labor. Complete and pushed. Found to be face presentation. section - Discharge Data Discharge Date: 11/13/17 Discharge Disposition: Home, Self-Care 01 Condition: Good - Patient Summary/Data Operative Procedure(s) Performed: primary section - Patient Instructions Diet: Usual Diet as Tolerated Diet, Other: high iron Activity: No Strenuous Activities Activity, Other: pelvic rest Driving: Do Not Drive Wound/Incision Care: Keep Operative Site/Wound Site Clean and Dry Notify Provider of: Fever, Increased Pain, Swelling and Redness, Drainage, Nausea and/or Vomiting - Discharge Plan Home Medications: Home Meds Benzocaine/Menthol [Dermoplast Pain Relief Alpine] 1 spray TOP ASDIRECTED PRN #0 canister 09/17/15 [Rx] Docusate Sodium [Colace] 100 mg PO BID PRN #0 cap 09/17/15 [Rx] Ibuprofen [Motrin] 600 mg PO Q4H PRN #0 tablet 09/17/15 [Rx] PNV95/Ferrous Fumarate/FA [ Tablet] 1 tab PO DAILY 10/20/16 [History] Patient Handouts: Delivery, Care After Referrals: Serenity Hallman MD [Primary Care Provider] - (please make an appointment to see Dr Hallman in the next 2-4 weeks at [facility]. [phone]) - Discharge Summary/Plan Comment DC Time >30 min.: No - General Info Date of Service: 11/13/17 Functional Status: Reports: Pain Controlled - Review of Systems General: Reports: No Symptoms HEENT: Reports: No Symptoms Pulmonary: Reports: No Symptoms Cardiovascular: Reports: No Symptoms Gastrointestinal: Reports: No Symptoms Genitourinary: Reports: No Symptoms Musculoskeletal: Reports: No Symptoms Skin: Reports: No Symptoms Neurological: Reports: No Symptoms Psychiatric: Reports: No Symptoms - Patient Data Vitals - Most Recent: Last Vital Signs Temp 36.8 C 11/13/17 05:16 Pulse 81 11/13/17 05:16 Resp 16 11/13/17 05:16 BP 122/76 11/13/17 05:16 Pulse Ox 100 11/13/17 05:16 Weight - Most Recent: 85.275 kg Med Orders - Current: Current Medications Diphenhydramine HCl (Benadryl) 25 mg IVPUSH Q6H PRN PRN Reason: Itching or Nausea Last Admin: 11/10/17 22:13 Dose: 25 mg Docusate Sodium (Colace) 100 mg PO Q12H PRN PRN Reason: Constipation Emollient Ointment (Lansinoh Hpa) 0 gm TOP ASDIRECTED PRN PRN Reason: Sore Nipples Last Admin: 11/12/17 21:47 Dose: 1 tube Ephedrine Sulfate (Ephedrine Sulfate) 5 mg IVPUSH SEECOMMENT PRN PRN Reason: Other Ibuprofen (Motrin) 600 mg PO Q6H PRN PRN Reason: mild pain or fever Last Admin: 11/12/17 21:48 Dose: 600 mg Naloxone HCl (Narcan) 0.1 mg IVPUSH SEECOMMENT PRN PRN Reason: Respiratory Depression Oxycodone/Acetaminophen (Percocet 325-5 Mg) 2 tab PO Q6H PRN PRN Reason: Pain (moderate 4-6) Last Admin: 11/12/17 21:43 Dose: 2 tab Simethicone (Simethicone) 80 mg PO PCBED MAULIK Last Admin: 11/12/17 18:17 Dose: 80 mg Discontinued Medications Bupivacaine HCl (Marcaine 0.5%) Confirm Administered Dose 30 ml .ROUTE .STK-MED ONE Stop: 11/10/17 18:25 Last Admin: 11/10/17 19:07 Dose: 20 ml Bupivacaine HCl (Sensorcaine-Mpf 0.25%) 10 ml .ROUTE .STK-MED ONE Stop: 11/10/17 22:23 Cefazolin Sodium (Ancef) Confirm Administered Dose 2 gm .ROUTE .STK-MED ONE Stop: 11/10/17 18:45 Citric Acid/Sodium Citrate (Bicitra Solution) Confirm Administered Dose 30 ml .ROUTE .STK-MED ONE Stop: 11/10/17 18:11 Last Admin: 11/10/17 22:57 Dose: Not Given Citric Acid/Sodium Citrate (Bicitra Solution) 30 ml PO ONETIME ONE Stop: 11/10/17 18:15 Last Admin: 11/10/17 18:34 Dose: 30 ml Diphenhydramine HCl (Benadryl) 25 mg IVPUSH Q6H PRN PRN Reason: pruritis Ephedrine Sulfate (Ephedrine Sulfate) 5 mg IVPUSH ASDIRECTED PRN PRN Reason: Hypotension Ephedrine Sulfate (Ephedrine Sulfate) 5 mg IVPUSH ASDIRECTED PRN PRN Reason: Hypotension Fentanyl (Sublimaze) 100 mcg EPIDUR Q3H PRN PRN Reason: Pain Fentanyl (Sublimaze) Confirm Administered Dose 100 mcg .ROUTE .STK-[employer] ONE Stop: 11/10/17 18:45 Fentanyl (Sublimaze) 50 mcg IVPUSH Q5M PRN PRN Reason: Pain Last Admin: 11/10/17 20:20 Dose: 50 mcg Fentanyl/Bupivacaine HCl (Fentanyl/Bupivacaine/Ns 2 Mcg-0.125% 100 Ml) 100 ml EPIDUR ASDIRECTED MAULIK Ampicillin Sodium 2 gm/ Sodium (Chloride) 100 mls @ 200 mls/hr IV ONETIME ONE Stop: 11/10/17 09:29 Last Admin: 11/10/17 09:14 Dose: 200 mls/hr Ampicillin Sodium 1 gm/ Sodium (Chloride) 100 mls @ 200 mls/hr IV Q4H MAULIK Last Admin: 11/10/17 16:58 Dose: 200 mls/hr Lactated Ringer's (Ringers, Lactated) 1,000 mls @ 100 mls/hr IV ASDIRECTED MAULIK Last Admin: 11/10/17 18:34 Dose: 100 mls/hr Oxytocin/Lactated Ringer's (Pitocin In Lr 10 Units/1,000 Ml) 10 unit in 1,000 mls @ 12 mls/hr IV TITRATE MAULIK; 2 MUNITS/MIN PRN Reason: Protocol Last Titration: 11/10/17 16:23 Dose: 6 munits/min, 36 mls/hr Oxytocin/Lactated Ringer's (Pitocin In Lr 10 Units/1,000 Ml) 10 unit in 1,000 mls @ 500 mls/hr IV ASDIRECTED MAULIK PRN Reason: Protocol Lactated Ringer's (Ringers, Lactated) 1,000 mls @ 125 mls/hr IV ASDIRECTED MAULIK Lactated Ringer's (Ringers, Lactated) Confirm Administered Dose 2,000 mls @ as directed .ROUTE .[employer] ONE Stop: 11/10/17 18:45 Phenylephrine HCl 1 mg/ Sodium (Chloride) 10.1 mls @ 1 mls/sec IV TITRATE MAULIK PRN Reason: Protocol Dextrose/Lactated Ringer's (Dextrose 5%-Lactated Ringers) 1,000 mls @ 125 mls/ hr IV ASDIRECTED [facility] Stop: 11/11/17 04:42 Last Admin: 11/10/17 22:37 Dose: 125 mls/hr Ibuprofen (Motrin) 600 mg PO Q6H PRN PRN Reason: mild pain or fever Ketorolac Tromethamine (Toradol) Confirm Administered Dose 30 mg .ROUTE .STK- MED ONE Stop: 11/10/17 18:45 Ketorolac Tromethamine (Toradol) 30 mg IVPUSH Q6H [facility] Stop: 11/11/17 09:01 Last Admin: 11/10/17 22:58 Dose: Not Given Ketorolac Tromethamine (Toradol) 30 mg IVPUSH Q6H [facility] Stop: 11/11/17 13:31 Last Admin: 11/11/17 13:09 Dose: 30 mg Lidocaine/Epinephrine (Xylocaine-Mpf 2%-Epi 1:200,000) Confirm Administered Dose 20 ml .ROUTE .STK-MED ONE Stop: 11/10/17 18:45 Meperidine HCl (Demerol) 12.5 mg IVPUSH ONETIME PRN PRN Reason: shivering Meperidine HCl (Demerol) Confirm Administered Dose 50 mg .ROUTE .STK-MED ONE Stop: 11/10/17 19:36 Metoclopramide HCl (Reglan) Confirm Administered Dose 10 mg .ROUTE .STK-MED ONE Stop: 11/10/17 18:11 Last Admin: 11/10/17 22:57 Dose: Not Given Metoclopramide HCl (Reglan) 10 mg IVPUSH ONETIME ONE Stop: 11/10/17 18:15 Last Admin: 11/10/17 18:35 Dose: 10 mg Morphine Sulfate (Duramorph Pf) Confirm Administered Dose 1 mg .ROUTE .STK-MED ONE Stop: 11/10/17 18:13 Ondansetron HCl (Zofran) 4 mg IVPUSH ONETIME PRN PRN Reason: Nausea/Vomiting Ondansetron HCl (Zofran) Confirm Administered Dose 4 mg .ROUTE .STK-MED ONE Stop: 11/10/17 18:45 Ondansetron HCl (Zofran) 4 mg IVPUSH ONETIME PRN PRN Reason: Nausea/Vomiting Oxytocin (Pitocin) Confirm Administered Dose 10 unit .ROUTE .STK-MED ONE Stop: 11/10/17 18:45 Phenylephrine HCl (Tl-Synephrine) Confirm Administered Dose 10 mg .ROUTE .STK- MED ONE Stop: 11/10/17 18:45 Sodium Chloride (Saline Flush) 10 ml FLUSH ASDIRECTED PRN PRN Reason: Keep Vein Open Sodium Chloride (Saline Flush) 10 ml FLUSH ASDIRECTED PRN PRN Reason: Keep Vein Open - Exam General: Reports: Alert, Oriented HEENT: Reports: Pupils Equal, Pupils Reactive, EOMI, Mucous Membr. Moist/[place] Neck: Reports: Supple Lungs: Reports: Clear to Auscultation, Normal Respiratory Effort Cardiovascular: Reports: Regular Rate, Regular Rhythm GI/Abdominal Exam: Normal Bowel Sounds, Soft, Non-Tender, No Organomegaly, No Distention, No Abnormal Bruit, No Mass, Pelvis Stable Back Exam: Reports: Normal Inspection, Full Range of Motion Extremities: Normal Inspection, Normal Range of Motion, Non-Tender, No Pedal Edema, Normal Capillary Refill Skin: Reports: Warm, Dry, Intact Wound/Incisions: Reports: Healing Well Neurological: Reports: No New Focal Deficit Psy/Mental Status: Reports: Alert, Normal Affect, Normal Mood *Q Meaningful Use (DIS) - VTE *Q VTE Criteria *Q: - Stroke *Q Stroke Criteria *Q: - AMI *Q AMI Criteria *Q:
== END 2017-11-13 10:00 | disposition home or self-care (01) | DRG 540 ==
LOC: JD.OBCHECK 07:57 → JD.OB 07:57 → JD.OBCHECK 07:58 → JD.OB 07:59 → OBSVTOIN 19:11
PROVIDERS: ADMIT Obstetrics & Gynecology; ATTEND Obstetrics & Gynecology
PROC: 10D00Z1 Extraction of Products of Conception, Low, Open Approach (ICD-10-PCS; principal; 2017-11-10)
PROC: 10907ZC Drainage of Amniotic Fluid, Therapeutic from Products of Conception, Via Natural or Artificial Opening (ICD-10-PCS; 2017-11-10)
PROC: 00HU33Z Insertion of Infusion Device into Spinal Canal, Percutaneous Approach (ICD-10-PCS; 2017-11-10)
PROC: 3E0R3BZ Introduction of Anesthetic Agent into Spinal Canal, Percutaneous Approach (ICD-10-PCS; 2017-11-10)
DX: O64.2XX0 Obstructed labor due to face presentation, not applicable or unspecified (principal); Z3A.40 40 weeks gestation of pregnancy; Z37.0 Single live birth
CPT/HCPCS: 36415; 51702; 85025; 86850; 86900; 86901; A9270-GY; J0290; J0690; J1200; J1885; J2175; J2274; J2370; J2405; J2590; J2765; J3010; J7030; J7042; J7120

== ENCOUNTER 2020-09-07 05:27 | Inpatient (IN) | payer BC ==
[~2020-09-07 05:27] MED LIST: Citric Acid/Sodium Citrate Solution 30 ML Cup PO ONE; Lactated Ringers 1,000 ML IV SCH; Metoclopramide 10 MG/2 ML SDV IVPUSH ONE; Oxytocin/Lactated Ringers 10 UNIT/1,000 ML BAG IV SCH; Sodium Chloride 0.9% 10 ML Syringe FLUSH PRN; ceFAZolin 2 GM in Premix Bag 1 BAG IV ONE
[2020-09-07] MEDS ORDERED: Metoclopramide 10 MG/2 ML SDV ONE (06:56)
[2020-09-07] MEDS ORDERED: Citric Acid/Sodium Citrate Solution 30 ML Cup ONE (06:57)
[2020-09-07] MEDS ORDERED: Ondansetron 4 MG/2 ML SDV ONE (07:04)
[2020-09-07] MEDS ORDERED: Lactated Ringers 1,000 ML ONE (07:04)
[2020-09-07] MEDS ORDERED: Oxytocin 10 Units/1 ML SDV ONE (07:04)
[2020-09-07] MEDS ORDERED: Morphine PF 10 MG/10 ML SDV ONE (07:04)
--- NOTE | 2020-09-07 07:15 | PCM.OPNOTE ---
- General Post-Op/Procedure Note Date of Surgery/Procedure: 09/07/20 Operative Procedure(s): Repeat low transverse Findings: Moderate amount of scar tissue between the rectus and fascia. Fairly dense adhesive disease between the bladder and lower uterine segment. Baby boy in a vertex presentation. Weight of 7lbs 14 oz. Apgars of 9 & 9. Normal appearance of the uterus, fallopian tubes, and ovaries Pre Op Diagnosis: 39 weeks. 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 Speed/safety of procedure. Pathology: Cord blood collected. Placenta discarded Fluid Replacement, Intraop: 2,600 Output, Urine Amount: 75 EBL in mLs: 1,000 Complications: None Condition: Good Free Text/Narrative:: The risks, benefits, indications, potential complications, and alternatives were explained to the patient and informed consent obtained. After induction of anesthesia, the patient was placed in a supine position and then draped and prepped in the usual sterile manner. A Pfannenstiel incision was made and carried down through the subcutaneous tissue to the fascia. Fascial incision was made and extended transversely. The fascia was from the underlying rectus tissue superiorly and inferiorly. The peritoneum was identified and entered. Peritoneal incision was extended longitudinally. The utero-vesical peritoneal reflection was incised transversely and the bladder flap was bluntly freed from the lower uterine segment. A low transverse uterine incision was made sharply with a scalpel and extended bluntly in a cephalocaudad direction. A baby boy was delivered from a vertex presentation with APGARS as above. After the umbilical cord was clamped and cut cord blood was obtained for evaluation. The placenta was removed intact and appeared normal. The uterus was exteriorized and cleared of clots. The uterine outline, tubes and ovaries appeared normal. The uterine incision was closed with running locked sutures of 0 Vicryl. Hemostasis was obtained with a second imbricating layer of 0 Vicryl. The uterus was then placed back into the abdomen. The infracolic gutters were cleared of blood clots. The fascia was then reapproximated with running sutures of 0 Vicryl. The subcutaneous tissue was irrigated with sterile warm normal saline, hemostasis obtained with cautery. The skin was reapproximated with running Subcuticular 4-0 monocryl sutures. Instrument, sponge, and needle counts were correct prior the abdominal closure and at the conclusion of the case.
--- NOTE | 2020-09-07 07:27 | PCM.PREANE ---
Preanesthetic Assessment - Anesthesia/Transfusion/Family Hx Anesthesia History: Prior Anesthesia Without Reaction Family History of Anesthesia Reaction: No Transfusion History: No Prior Transfusion(s) Intubation History: Unknown - Review of Systems General: No Symptoms Pulmonary: No Symptoms Cardiovascular: No Symptoms Gastrointestinal: No Symptoms Neurological: No Symptoms Other: Reports: None - Physical Assessment NPO Status Date: 09/06/20 NPO Status Time: 23:00 Vital Signs: Last Vital Signs Temp 36.6 C 09/07/20 05:47 Pulse 100 09/07/20 05:47 Resp 14 09/07/20 05:47 BP 124/80 09/07/20 05:47 Pulse Ox 100 09/07/20 05:47 Height: 1.68 m Weight: 90.718 kg ASA Class: 2 Mental Status: Alert & Oriented x3 Airway Class: Mallampati = 2 Dentition: Reports: Normal Dentition Thyro-Mental Finger Breadths: 3 Mouth Opening Finger Breadths: 3 ROM/Head Extension: Full Lungs: Clear to Auscultation, Normal Respiratory Effort Cardiovascular: Regular Rate, Regular Rhythm - Lab Values: Laboratory Last Values WBC 6.99 K/mm3 (3.98-10.04) 09/07/20 05:38 RBC 4.71 M/mm3 (3.98-5.22) 09/07/20 05:38 Hgb 11.9 gm/dl (11.2-15.7) D 09/07/20 05:38 Hct 37.4 % (34.1-44.9) 09/07/20 05:38 MCV 79.4 fl (79.4-94.8) D 09/07/20 05:38 MCH 25.3 pg (25.6-32.2) L 09/07/20 05:38 MCHC 31.8 g/dl (32.2-35.5) L 09/07/20 05:38 RDW Std Deviation 47.6 fL (36.4-46.3) H 09/07/20 05:38 Plt Count 172 K/mm3 (182-369) L 09/07/20 05:38 MPV 12.2 fl (9.4-12.3) 09/07/20 05:38 Neut % (Auto) 57.6 % (34.0-71.1) 09/07/20 05:38 Lymph % (Auto) 29.3 % (19.3-51.7) 09/07/20 05:38 [place] % (Auto) 11.4 % (4.7-12.5) 09/07/20 05:38 Eos % (Auto) 0.7 (0.7-5.8) 09/07/20 05:38 Baso % (Auto) 0.1 % (0.1-1.2) 09/07/20 05:38 Neut # (Auto) 4.02 K/mm3 (1.56-6.13) 09/07/20 05:38 Lymph # (Auto) 2.05 K/mm3 (1.18-3.74) 09/07/20 05:38 [place] # (Auto) 0.80 K/mm3 (0.24-0.36) H 09/07/20 05:38 Eos # (Auto) 0.05 K/mm3 (0.04-0.36) 09/07/20 05:38 Baso # (Auto) 0.01 K/mm3 (0.01-0.08) 09/07/20 05:38 - Allergies Allergies/Adverse Reactions: Allergies Allergy/AdvReac Type Severity Reaction Status Date / Time No Known Allergies Allergy Verified 09/07/20 06:16 - Blood Blood Available: No Product(s) Available: None - Acknowledgements Anesthesia Type Planned: Spinal Pt an Appropriate Candidate for the Planned Anesthesia: Yes Alternatives and Risks of Anesthesia Discussed w Pt/Guardian: Yes Pt/Guardian Understands and Agrees with Anesthesia Plan: Yes PreAnesthesia Questionnaire - Past Health History Medical/Surgical History: Denies 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 OB/BYN History: 11/10/17 C/S - SUBSTANCE USE Tobacco Use Status *Q: Never Tobacco User Tobacco Use Within Last Twelve Months: No Second Hand Smoke Exposure: No Recreational Drug Use History: No - HOME MEDS Home Medications: Home Meds Pnv No.95/Ferrous Fum/Folic AC [ Tablet] 1 tab PO DAILY 10/20/16 [History] Ferrous Sulfate [Slow Fe] 1 tab PO DAILY 09/06/20 [History] - CURRENT (IN HOUSE) MEDS Current Meds: Current Medications Lactated Ringer's (Ringers, Lactated) 1,000 mls @ 125 mls/hr IV ASDIRECTED MAULIK Last Admin: 09/07/20 06:00 Dose: 999 mls/hr Documented by: Oxytocin/Lactated Ringer's (Pitocin In Lr 10 Units/1,000 Ml) 10 unit in 1,000 mls @ 100 mls/hr IV ASDIRECTED MAULIK; Protocol Sodium Chloride (Saline Flush) 10 ml FLUSH ASDIRECTED PRN PRN Reason: Keep Vein Open Discontinued Medications Citric Acid/Sodium Citrate (Bicitra Solution) 30 ml PO ONETIME ONE Stop: 09/07/20 01:04 Last Admin: 09/07/20 07:01 Dose: 30 ml Documented by: Citric Acid/Sodium Citrate (Bicitra Solution) Confirm Administered Dose 30 ml .ROUTE .STK-MED ONE Stop: 09/07/20 06:58 Cefazolin Sodium/Dextrose 2 gm (/ Premix) 50 mls @ 100 mls/hr IV ONETIME ONE Stop: 09/07/20 01:32 Lactated Ringer's (Ringers, Lactated) Confirm Administered Dose 1,000 mls @ as directed .ROUTE .STK-MED ONE Stop: 09/07/20 07:05 Metoclopramide HCl (Reglan) 10 mg IVPUSH ONETIME ONE Stop: 09/07/20 01:04 Last Admin: 09/07/20 07:01 Dose: 10 mg Documented by: Metoclopramide HCl (Reglan) Confirm Administered Dose 10 mg .ROUTE .STK-MED ONE Stop: 09/07/20 06:57 Morphine Sulfate (Duramorph Pf) Confirm Administered Dose 10 mg .ROUTE .STK-MED ONE Stop: 09/07/20 07:05 Ondansetron HCl (Zofran) Confirm Administered Dose 4 mg .ROUTE .STK-MED ONE Stop: 09/07/20 07:05 Oxytocin (Pitocin) Confirm Administered Dose 20 unit .ROUTE .STK-MED ONE Stop: 09/07/20 07:05
[2020-09-07] MEDS ORDERED: ePHEDrine 50 MG/ML SDV ONE (08:22)
[2020-09-07] MEDS ORDERED: fentaNYL 100 MCG/2 ML SDV IVPUSH PRN (08:47)
[2020-09-07] MEDS ORDERED: ePHEDrine 50 MG/ML SDV IVPUSH PRN ×2 (08:47→09:53)
[2020-09-07] MEDS ORDERED: Ondansetron 4 MG/2 ML SDV IVPUSH PRN (08:47)
[2020-09-07] MEDS ORDERED: diphenhydrAMINE 50 MG/ML SDV IVPUSH PRN ×2 (08:47→09:53)
--- NOTE | 2020-09-07 08:48 | PCM.POSTAN ---
POST ANESTHESIA ASSESSMENT - MENTAL STATUS Mental Status: Alert, Oriented - VITAL SIGNS Vital Signs: Last Vital Signs Temp 36.6 C 09/07/20 05:47 Pulse 100 09/07/20 05:47 Resp 14 09/07/20 05:47 BP 124/80 09/07/20 05:47 Pulse Ox 100 09/07/20 05:47 - RESPIRATORY Respiratory Status: Respiratory Rate WNL, Airway Patent, O2 Saturation Stable - CARDIOVASCULAR CV Status: Pulse Rate WNL, Blood Pressure Stable - GASTROINTESTINAL GI Status: No Symptoms - PAIN Pain Score: 0 - POST OP HYDRATION Hydration Status: Adequate & Stable
[2020-09-07] MEDS ORDERED: Acetaminophen/oxyCODONE 325-5 MG Tab PO PRN (09:53)
[2020-09-07] MEDS ORDERED: Dextrose 5%-Lactated Ringers 1,000 ML IV SCH (09:53)
[2020-09-07] MEDS: Ketorolac 30 MG/ML SDV IVPUSH SCH ×2 (17:57→23:55)
[2020-09-08] MEDS ORDERED: Ketorolac 30 MG/ML SDV ONE (06:11)
[2020-09-08] MEDS: Ketorolac 30 MG/ML SDV IVPUSH SCH (06:16)
[2020-09-08] MEDS: Docusate Sodium 100 MG Cap PO PRN (06:18)
--- NOTE | 2020-09-08 06:49 | PCM.PNPP ---
- General Info Date of Service: 09/08/20 Functional Status: Reports: Pain Controlled, Tolerating Diet, Ambulating, Urinating - Review of Systems General: Reports: No Symptoms Pulmonary: Reports: No Symptoms Cardiovascular: Reports: No Symptoms Gastrointestinal: Reports: Abdominal Pain (minimal) Genitourinary: Reports: No Symptoms Musculoskeletal: Reports: No Symptoms Neurological: Reports: No Symptoms - Patient Data Vital Signs - Most Recent: Last Vital Signs Temp 36.8 C 09/08/20 03:20 Pulse 89 09/08/20 03:20 Resp 15 09/08/20 06:00 BP 119/77 09/08/20 03:20 Pulse Ox 99 09/08/20 06:00 Weight - Most Recent: 90.718 kg I&O - Last 24 Hours: Intake & Output 09/07/20 09/07/20 09/08/20 14:59 22:59 06:59 Intake Total 4100 120 Output Total 880 3150 1050 Balance 3220 -3030 -1050 Lab Results - Last 24 Hours: Laboratory Results - last 24 hr 09/07/20 09/08/20 Range/Units 05:38 06:04 WBC 7.90 (3.98-10.04) K/mm3 RBC 3.47 L (3.98-5.22) M/mm3 Hgb 9.0 L D (11.2-15.7) gm/dl Hct 28.3 L (34.1-44.9) % MCV 81.6 (79.4-94.8) fl MCH 25.9 (25.6-32.2) pg MCHC 31.8 L (32.2-35.5) g/dl RDW Std Deviation 48.6 H (36.4-46.3) fL Plt Count 124 L (182-369) K/mm3 MPV 11.3 (9.4-12.3) fl Blood Type O POSITIVE Gel Antibody Screen Negative Med Orders - Current: Current Medications Diphenhydramine HCl (Benadryl) 25 mg IVPUSH Q6H PRN PRN Reason: Itching or Nausea Last Admin: 09/07/20 12:14 Dose: 25 mg Documented by: Docusate Sodium (Colace) 100 mg PO Q12H PRN PRN Reason: Constipation Last Admin: 09/08/20 06:18 Dose: 100 mg Documented by: Ephedrine Sulfate (Ephedrine Sulfate) 5 mg IVPUSH SEECOMMENT PRN PRN Reason: Other Fentanyl (Sublimaze) 50 mcg IVPUSH Q5M PRN PRN Reason: pain Ibuprofen (Motrin) 600 mg PO Q6H PRN PRN Reason: mild pain or fever Ondansetron HCl (Zofran) 4 mg IVPUSH ONETIME PRN PRN Reason: Nausea/Vomiting Oxycodone/Acetaminophen (Percocet 325-5 Mg) 1 tab PO Q4H PRN PRN Reason: Pain (moderate 4-6) Oxycodone/Acetaminophen (Percocet 325-5 Mg) 2 tab PO Q4H PRN PRN Reason: Pain (severe 7-10) Discontinued Medications Citric Acid/Sodium Citrate (Bicitra Solution) 30 ml PO ONETIME ONE Stop: 09/07/20 01:04 Last Admin: 09/07/20 07:01 Dose: 30 ml Documented by: Citric Acid/Sodium Citrate (Bicitra Solution) Confirm Administered Dose 30 ml .ROUTE .STK-MED ONE Stop: 09/07/20 06:58 Last Admin: 09/07/20 23:36 Dose: Not Given Documented by: Diphenhydramine HCl (Benadryl) 25 mg IVPUSH Q6H PRN PRN Reason: itching Ephedrine Sulfate (Ephedrine Sulfate) Confirm Administered Dose 50 mg .ROUTE .STK-MED ONE Stop: 09/07/20 08:23 Ephedrine Sulfate (Ephedrine Sulfate) 5 mg IVPUSH ASDIRECTED PRN PRN Reason: Hypotension Cefazolin Sodium/Dextrose 2 gm (/ Premix) 50 mls @ 100 mls/hr IV ONETIME ONE Stop: 09/07/20 01:32 Last Admin: 09/07/20 23:36 Dose: Not Given Documented by: Lactated Ringer's (Ringers, Lactated) 1,000 mls @ 125 mls/hr IV ASDIRECTED [facility] Last Admin: 09/07/20 06:00 Dose: 999 mls/hr Documented by: Oxytocin/Lactated Ringer's (Pitocin In Lr 10 Units/1,000 Ml) 10 unit in 1,000 mls @ 100 mls/hr IV ASDIRECTED [facility]; Protocol Lactated Ringer's (Ringers, Lactated) Confirm Administered Dose 1,000 mls @ as directed .ROUTE .STK-MED ONE Stop: 09/07/20 07:05 Dextrose/Lactated Ringer's (Dextrose 5%-Lactated Ringers) 1,000 mls @ 125 mls/hr IV ASDIRECTED [facility] Stop: 09/07/20 17:52 Last Admin: 09/07/20 13:07 Dose: 125 mls/hr Documented by: Ketorolac Tromethamine (Toradol) 30 mg IVPUSH Q6H [facility] Stop: 09/08/20 02:31 Last Admin: 09/08/20 06:16 Dose: 30 mg Documented by: Ketorolac Tromethamine (Toradol) Confirm Administered Dose 30 mg .ROUTE .STK-MED ONE Stop: 09/08/20 06:12 Last Admin: 09/08/20 06:17 Dose: Not Given Documented by: Metoclopramide HCl (Reglan) 10 mg IVPUSH ONETIME ONE Stop: 09/07/20 01:04 Last Admin: 09/07/20 07:01 Dose: 10 mg Documented by: Metoclopramide HCl (Reglan) Confirm Administered Dose 10 mg .ROUTE .STK-MED ONE Stop: 09/07/20 06:57 Last Admin: 09/07/20 23:36 Dose: Not Given Documented by: Miscellaneous Medication (Phenylephrine 1 Mg/10 Ml-Ns) Confirm Administered Dose 1 mg .ROUTE .STK-MED ONE Stop: 09/07/20 08:23 Morphine Sulfate (Duramorph Pf) Confirm Administered Dose 10 mg .ROUTE .STK-MED ONE Stop: 09/07/20 07:05 Ondansetron HCl (Zofran) Confirm Administered Dose 4 mg .ROUTE .STK-MED ONE Stop: 09/07/20 07:05 Oxytocin (Pitocin) Confirm Administered Dose 10 unit .ROUTE .STK-MED ONE Stop: 09/07/20 07:05 Sodium Chloride (Saline Flush) 10 ml FLUSH ASDIRECTED PRN PRN Reason: Keep Vein Open - Interaction Infant Disposition, : [place] in Room with Family Interaction: Holding Infant Feeding: Breastfed ; Nursed Well Support Person: - Recovery Exam Fundal Tone: Firm Fundal Level: 1 Fingerbreadths Below Umbilicus Fundal Placement: Midline Lochia Amount: Small Lochia Color: Rubra/Red Perineum Description: Intact, Minimal Bruising/Swelling Episiotomy/Laceration: Not Approximated Bladder Status: Indwelling Catheter in Place - Exam General: Alert, Oriented, Cooperative GI/Abdominal Exam: Soft, Non-Tender Extremities: Normal Inspection Skin: Warm, Dry, Intact Wound/Incisions: Healing Well, No Drainage - Problem List & Annotations (1) History of delivery SNOMED Code(s): 574224255 Code(s): Z98.891 - HISTORY OF UTERINE SCAR FROM PREVIOUS SURGERY Status: Acute Current Visit: Yes (2) S/P repeat low transverse SNOMED Code(s): 489965711, [id number], 708131415, 157612398, 609479185 Code(s): Z98.891 - HISTORY OF UTERINE SCAR FROM PREVIOUS SURGERY Status: Acute Current Visit: Yes - Problem List Review Problem List Initiated/Reviewed/Updated: Yes - My Orders Last 24 Hours: My Active Orders 09/07/20 09:53 Acetaminophen/oxyCODONE [Percocet 325-5 MG] 1 tab PO Q4H PRN Acetaminophen/oxyCODONE [Percocet 325-5 MG] 2 tab PO Q4H PRN Docusate Sodium [Colace] 100 mg PO Q12H PRN diphenhydrAMINE [Benadryl] 25 mg IVPUSH Q6H PRN ePHEDrine [ePHEDrine sulfate] 5 mg IVPUSH SEECOMMENT PRN 09/07/20 09:53 Activity as Tolerated [RC] .Routine Antiembolic Devices [RC] PER UNIT ROUTINE Communication Order [RC] PER UNIT ROUTINE Communication Order [RC] PER UNIT ROUTINE Intake and Output [RC] Q4H Notify Provider Intake and Out [RC] ASDIRECTED RT Incentive Spirometry [RC] Q2HWA Vital Signs [RC] Q1HR Assess Lochia [WOMSER] Per Unit Routine Assess Uterine Involution [WOMSER] Per Unit Routine Breast Pump [WOMSER] Per Unit Routine Peripheral IV Discontinue [OM.PC] Routine Sequential Compression Device [OM.PC] Per Unit Routine 09/07/20 Lunch Regular Diet [DIET] 09/08/20 08:30 Ibuprofen [Motrin] 600 mg PO Q6H PRN 09/08/20 08:45 Urinary Catheter Removal [RC] Per Unit Routine - Assessment Assessment:: POD#1 - Plan Plan:: * Routine cares * Breast feeding * Continue PNV on discharge, appropriate post op anemia * Discharge home in 1-2 days
[2020-09-08] MEDS: Acetaminophen/oxyCODONE 325-5 MG Tab PO PRN ×3 (10:02→17:56)
--- NOTE | 2020-09-08 14:21 | PCM48HPAN ---
Post Anesthesia Note - EVALUATION WITHIN 48HRS OF ANESTHETIC Vital Signs in Normal Range: Yes Patient Participated in Evaluation: Yes Respiratory Function Stable: Yes Airway Patent: Yes Cardiovascular Function Stable: Yes Hydration Status Stable: Yes Pain Control Satisfactory: Yes Nausea and Vomiting Control Satisfactory: Yes Mental Status Recovered: Yes Vital Signs: Last Vital Signs Temp 36.7 C 09/08/20 09:00 Pulse 72 09/08/20 09:00 Resp 14 09/08/20 09:00 BP 124/72 09/08/20 09:00 Pulse Ox 98 09/08/20 09:00
[2020-09-08] MEDS: Ibuprofen 600 MG Tab PO PRN ×2 (17:55→23:58)
[2020-09-08] MEDS ORDERED: Simethicone 80 MG Tab.Chew PO ONE (18:05)
[2020-09-09] MEDS: Docusate Sodium 100 MG Cap PO PRN
[2020-09-09] MEDS: Acetaminophen/oxyCODONE 325-5 MG Tab PO PRN (03:47)
[2020-09-09] MEDS: Simethicone 80 MG Tab.Chew PO PRN ×2 (05:56)
[2020-09-09] MEDS: Ibuprofen 600 MG Tab PO PRN (05:56)
--- NOTE | 2020-09-09 06:52 | PCM.DCSUM1 ---
Discharge Summary - Discharge Data Discharge Date: 09/09/20 Discharge Disposition: Home, Self-Care 01 Condition: Good - Referral to Home Health Primary Care Physician: Serenity Hallman MD - Discharge Diagnosis/Problem(s) (1) History of delivery SNOMED Code(s): 254413030 ICD Code: Z98.891 - HISTORY OF UTERINE SCAR FROM PREVIOUS SURGERY Status: Acute Current Visit: Yes (2) S/P repeat low transverse SNOMED Code(s): 901864111, 53093624, 043324724, 993214371, 918717219 ICD Code: Z98.891 - HISTORY OF UTERINE SCAR FROM PREVIOUS SURGERY Status: Acute Current Visit: Yes - Patient Summary/Data Operative Procedure(s) Performed: Repeat low transverse Complications: None Consults: None Recommended Follow-up Testing/Procedures: Follow up in 3 weeks for check Hospital Course: 30 y/o woman who presented for planned RLTCS. Surgery was uncomplicated. See operative note. did well and was discharged home on POD#2 - Patient Instructions Diet: Regular Diet as Tolerated Activity: No Lifting Over 10 Pounds Activity, Other: Pelvic rest for 6 weeks Driving: Do Not Drive (While taking Percocet ) Showering/Bathing: May Shower, No Tub Bathing/Swimming Wound/Incision Care: Keep Operative Site/Wound Site Clean and Dry Notify Provider of: Fever, Increased Pain, Swelling and Redness, Drainage, Nausea and/or Vomiting - Discharge Plan *PRESCRIPTION DRUG MONITORING PROGRAM REVIEWED*: No *COPY OF PRESCRIPTION DRUG MONITORING REPORT IN PATIENT AGUSTIN: No Prescriptions/Med Rec: Acetaminophen/oxyCODONE [Percocet 325-5 MG] 2 tab PO Q4H PRN #25 tablet PRN Reason: Pain (Severe 7-10) Home Medications: Home Meds Pnv No.95/Ferrous Fum/Folic AC [ Tablet] 1 tab PO DAILY 10/20/16 [History] Ferrous Sulfate [Slow Fe] 1 tab PO DAILY 09/06/20 [History] Acetaminophen/oxyCODONE [Percocet 325-5 MG] 2 tab PO Q4H PRN #25 tablet 09/08/20 [Rx] Docusate Sodium [Colace] 100 mg PO Q12H PRN cap 09/08/20 [Rx] Ibuprofen [Motrin] 600 mg PO Q6H PRN tablet 09/08/20 [Rx] Patient Handouts: Delivery, Care After Referrals: Serenity Hallman MD [Primary Care Provider] - (3 weeks for check ) - Discharge Summary/Plan Comment DC Time >30 min.: No - Patient Data Vitals - Most Recent: Last Vital Signs Temp 37.0 C 09/09/20 03:38 Pulse 92 09/09/20 03:38 Resp 15 09/09/20 03:38 BP 115/68 09/09/20 03:38 Pulse Ox 100 09/09/20 03:38 Weight - Most Recent: 90.718 kg I&O - Last 24 hours: Intake & Output 09/08/20 09/08/20 09/09/20 14:59 22:59 06:59 Output Total 1500 Balance -1500 Lab Results - Last 24 hrs: Laboratory Results - last 24 hr 09/07/20 Range/Units 05:38 RPR Non-reactive (NONREACTIVE) Med Orders - Current: Current Medications Diphenhydramine HCl (Benadryl) 25 mg IVPUSH Q6H PRN PRN Reason: Itching or Nausea Last Admin: 09/07/20 12:14 Dose: 25 mg Documented by: Docusate Sodium (Colace) 100 mg PO Q12H PRN PRN Reason: Constipation Last Admin: 09/09/20 00:00 Dose: 100 mg Documented by: Ephedrine Sulfate (Ephedrine Sulfate) 5 mg IVPUSH SEECOMMENT PRN PRN Reason: Other Fentanyl (Sublimaze) 50 mcg IVPUSH Q5M PRN PRN Reason: pain Ibuprofen (Motrin) 600 mg PO Q6H PRN PRN Reason: mild pain or fever Last Admin: 09/09/20 05:56 Dose: 600 mg Documented by: Ondansetron HCl (Zofran) 4 mg IVPUSH ONETIME PRN PRN Reason: Nausea/Vomiting Oxycodone/Acetaminophen (Percocet 325-5 Mg) 1 tab PO Q4H PRN PRN Reason: Pain (moderate 4-6) Last Admin: 09/09/20 03:47 Dose: 1 tab Documented by: Oxycodone/Acetaminophen (Percocet 325-5 Mg) 2 tab PO Q4H PRN PRN Reason: Pain (severe 7-10) Simethicone (Simethicone) 80 mg PO Q6H PRN PRN Reason: Gas Last Admin: 09/09/20 05:56 Dose: 80 mg Documented by: Discontinued Medications Citric Acid/Sodium Citrate (Bicitra Solution) 30 ml PO ONETIME ONE Stop: 09/07/20 01:04 Last Admin: 09/07/20 07:01 Dose: 30 ml Documented by: Citric Acid/Sodium Citrate (Bicitra Solution) Confirm Administered Dose 30 ml .ROUTE .STK-MED ONE Stop: 09/07/20 06:58 Last Admin: 09/07/20 23:36 Dose: Not Given Documented by: Diphenhydramine HCl (Benadryl) 25 mg IVPUSH Q6H PRN PRN Reason: itching Ephedrine Sulfate (Ephedrine Sulfate) Confirm Administered Dose 50 mg .ROUTE .STK-MED ONE Stop: 09/07/20 08:23 Ephedrine Sulfate (Ephedrine Sulfate) 5 mg IVPUSH ASDIRECTED PRN PRN Reason: Hypotension Cefazolin Sodium/Dextrose 2 gm (/ Premix) 50 mls @ 100 mls/hr IV ONETIME ONE Stop: 09/07/20 01:32 Last Admin: 09/07/20 23:36 Dose: Not Given Documented by: Lactated Ringer's (Ringers, Lactated) 1,000 mls @ 125 mls/hr IV ASDIRECTED [facility] Last Admin: 09/07/20 06:00 Dose: 999 mls/hr Documented by: Oxytocin/Lactated Ringer's (Pitocin In Lr 10 Units/1,000 Ml) 10 unit in 1,000 mls @ 100 mls/hr IV ASDIRECTED [facility]; Protocol Lactated Ringer's (Ringers, Lactated) Confirm Administered Dose 1,000 mls @ as directed .ROUTE .STK-MED ONE Stop: 09/07/20 07:05 Dextrose/Lactated Ringer's (Dextrose 5%-Lactated Ringers) 1,000 mls @ 125 mls/hr IV ASDIRECTED [facility] Stop: 09/07/20 17:52 Last Admin: 09/07/20 13:07 Dose: 125 mls/hr Documented by: Ketorolac Tromethamine (Toradol) 30 mg IVPUSH Q6H [facility] Stop: 09/08/20 02:31 Last Admin: 09/08/20 06:16 Dose: 30 mg Documented by: Ketorolac Tromethamine (Toradol) Confirm Administered Dose 30 mg .ROUTE .STK-MED ONE Stop: 09/08/20 06:12 Last Admin: 09/08/20 06:17 Dose: Not Given Documented by: Metoclopramide HCl (Reglan) 10 mg IVPUSH ONETIME ONE Stop: 09/07/20 01:04 Last Admin: 09/07/20 07:01 Dose: 10 mg Documented by: Metoclopramide HCl (Reglan) Confirm Administered Dose 10 mg .ROUTE .STK-MED ONE Stop: 09/07/20 06:57 Last Admin: 09/07/20 23:36 Dose: Not Given Documented by: Miscellaneous Medication (Phenylephrine 1 Mg/10 Ml-Ns) Confirm Administered Dose 1 mg .ROUTE .STK-MED ONE Stop: 09/07/20 08:23 Morphine Sulfate (Duramorph Pf) Confirm Administered Dose 10 mg .ROUTE .STK-MED ONE Stop: 09/07/20 07:05 Ondansetron HCl (Zofran) Confirm Administered Dose 4 mg .ROUTE .STK-MED ONE Stop: 09/07/20 07:05 Oxytocin (Pitocin) Confirm Administered Dose 10 unit .ROUTE .STK-MED ONE Stop: 09/07/20 07:05 Simethicone (Simethicone) 160 mg PO ONETIME ONE Stop: 09/08/20 18:06 Last Admin: 09/08/20 18:49 Dose: 160 mg Documented by: Sodium Chloride (Saline Flush) 10 ml FLUSH ASDIRECTED PRN PRN Reason: Keep Vein Open
--- NOTE | 2020-09-09 06:52 | PCM.PNPP ---
- General Info Date of Service: 09/09/20 Functional Status: Reports: Pain Controlled, Tolerating Diet, Ambulating, Urinating - Review of Systems General: Reports: No Symptoms Pulmonary: Reports: No Symptoms Cardiovascular: Reports: No Symptoms Gastrointestinal: Reports: Abdominal Pain (managed with medications ) Genitourinary: Reports: No Symptoms Musculoskeletal: Reports: No Symptoms Neurological: Reports: No Symptoms - Patient Data Vital Signs - Most Recent: Last Vital Signs Temp 37.0 C 09/09/20 03:38 Pulse 92 09/09/20 03:38 Resp 15 09/09/20 03:38 BP 115/68 09/09/20 03:38 Pulse Ox 100 09/09/20 03:38 Weight - Most Recent: 90.718 kg I&O - Last 24 Hours: Intake & Output 09/08/20 09/08/20 09/09/20 14:59 22:59 06:59 Output Total 1500 Balance -1500 Lab Results - Last 24 Hours: Laboratory Results - last 24 hr 09/07/20 Range/Units 05:38 RPR Non-reactive (NONREACTIVE) Med Orders - Current: Current Medications Diphenhydramine HCl (Benadryl) 25 mg IVPUSH Q6H PRN PRN Reason: Itching or Nausea Last Admin: 09/07/20 12:14 Dose: 25 mg Documented by: Docusate Sodium (Colace) 100 mg PO Q12H PRN PRN Reason: Constipation Last Admin: 09/09/20 00:00 Dose: 100 mg Documented by: Ephedrine Sulfate (Ephedrine Sulfate) 5 mg IVPUSH SEECOMMENT PRN PRN Reason: Other Fentanyl (Sublimaze) 50 mcg IVPUSH Q5M PRN PRN Reason: pain Ibuprofen (Motrin) 600 mg PO Q6H PRN PRN Reason: mild pain or fever Last Admin: 09/09/20 05:56 Dose: 600 mg Documented by: Ondansetron HCl (Zofran) 4 mg IVPUSH ONETIME PRN PRN Reason: Nausea/Vomiting Oxycodone/Acetaminophen (Percocet 325-5 Mg) 1 tab PO Q4H PRN PRN Reason: Pain (moderate 4-6) Last Admin: 09/09/20 03:47 Dose: 1 tab Documented by: Oxycodone/Acetaminophen (Percocet 325-5 Mg) 2 tab PO Q4H PRN PRN Reason: Pain (severe 7-10) Simethicone (Simethicone) 80 mg PO Q6H PRN PRN Reason: Gas Last Admin: 09/09/20 05:56 Dose: 80 mg Documented by: Discontinued Medications Citric Acid/Sodium Citrate (Bicitra Solution) 30 ml PO ONETIME ONE Stop: 09/07/20 01:04 Last Admin: 09/07/20 07:01 Dose: 30 ml Documented by: Citric Acid/Sodium Citrate (Bicitra Solution) Confirm Administered Dose 30 ml .ROUTE .STK-MED ONE Stop: 09/07/20 06:58 Last Admin: 09/07/20 23:36 Dose: Not Given Documented by: Diphenhydramine HCl (Benadryl) 25 mg IVPUSH Q6H PRN PRN Reason: itching Ephedrine Sulfate (Ephedrine Sulfate) Confirm Administered Dose 50 mg .ROUTE .STK-MED ONE Stop: 09/07/20 08:23 Ephedrine Sulfate (Ephedrine Sulfate) 5 mg IVPUSH ASDIRECTED PRN PRN Reason: Hypotension Cefazolin Sodium/Dextrose 2 gm (/ Premix) 50 mls @ 100 mls/hr IV ONETIME ONE Stop: 09/07/20 01:32 Last Admin: 09/07/20 23:36 Dose: Not Given Documented by: Lactated Ringer's (Ringers, Lactated) 1,000 mls @ 125 mls/hr IV ASDIRECTED [facility] Last Admin: 09/07/20 06:00 Dose: 999 mls/hr Documented by: Oxytocin/Lactated Ringer's (Pitocin In Lr 10 Units/1,000 Ml) 10 unit in 1,000 mls @ 100 mls/hr IV ASDIRECTED [facility]; Protocol Lactated Ringer's (Ringers, Lactated) Confirm Administered Dose 1,000 mls @ as directed .ROUTE .STK-MED ONE Stop: 09/07/20 07:05 Dextrose/Lactated Ringer's (Dextrose 5%-Lactated Ringers) 1,000 mls @ 125 mls/hr IV ASDIRECTED [facility] Stop: 09/07/20 17:52 Last Admin: 09/07/20 13:07 Dose: 125 mls/hr Documented by: Ketorolac Tromethamine (Toradol) 30 mg IVPUSH Q6H [facility] Stop: 09/08/20 02:31 Last Admin: 09/08/20 06:16 Dose: 30 mg Documented by: Ketorolac Tromethamine (Toradol) Confirm Administered Dose 30 mg .ROUTE .STK-MED ONE Stop: 09/08/20 06:12 Last Admin: 09/08/20 06:17 Dose: Not Given Documented by: Metoclopramide HCl (Reglan) 10 mg IVPUSH ONETIME ONE Stop: 09/07/20 01:04 Last Admin: 09/07/20 07:01 Dose: 10 mg Documented by: Metoclopramide HCl (Reglan) Confirm Administered Dose 10 mg .ROUTE .STK-MED ONE Stop: 09/07/20 06:57 Last Admin: 09/07/20 23:36 Dose: Not Given Documented by: Miscellaneous Medication (Phenylephrine 1 Mg/10 Ml-Ns) Confirm Administered Dose 1 mg .ROUTE .STK-MED ONE Stop: 09/07/20 08:23 Morphine Sulfate (Duramorph Pf) Confirm Administered Dose 10 mg .ROUTE .STK-MED ONE Stop: 09/07/20 07:05 Ondansetron HCl (Zofran) Confirm Administered Dose 4 mg .ROUTE .STK-MED ONE Stop: 09/07/20 07:05 Oxytocin (Pitocin) Confirm Administered Dose 10 unit .ROUTE .STK-MED ONE Stop: 09/07/20 07:05 Simethicone (Simethicone) 160 mg PO ONETIME ONE Stop: 09/08/20 18:06 Last Admin: 09/08/20 18:49 Dose: 160 mg Documented by: Sodium Chloride (Saline Flush) 10 ml FLUSH ASDIRECTED PRN PRN Reason: Keep Vein Open - Interaction Disposition, : in Room with Family Infant Interaction: Holding Infant Feeding: Breastfed ; Nursed Well Support Person: - Recovery Exam Fundal Tone: Firm Fundal Level: 1 Fingerbreadths Below Umbilicus Fundal Placement: Midline Lochia Amount: Scant, Small Lochia Color: Rubra/Red Perineum Description: Intact, Minimal Bruising/Swelling Episiotomy/Laceration: None Bladder Status: Voiding Urinary Elimination: Voided - Exam General: Alert, Oriented, Cooperative Lungs: Clear to Auscultation, Normal Respiratory Effort Cardiovascular: Regular Rate, Regular Rhythm GI/Abdominal Exam: Soft, Tender (appropriate ) Extremities: Normal Inspection Skin: Warm, Dry, Intact Wound/Incisions: Healing Well, No Drainage - Problem List & Annotations (1) History of delivery SNOMED Code(s): 036690910 Code(s): Z98.891 - HISTORY OF UTERINE SCAR FROM PREVIOUS SURGERY Status: Acute Current Visit: Yes (2) S/P repeat low transverse SNOMED Code(s): 760368271, 07318509, 309047700, 791414737, 003407596 Code(s): Z98.891 - HISTORY OF UTERINE SCAR FROM PREVIOUS SURGERY Status: Acute Current Visit: Yes - Problem List Review Problem List Initiated/Reviewed/Updated: Yes - My Orders Last 24 Hours: My Active Orders 09/08/20 08:30 Ibuprofen [Motrin] 600 mg PO Q6H PRN 09/08/20 23:15 Simethicone 80 mg PO Q6H PRN 09/09/20 06:51 Ready for Discharge [RC] PER UNIT ROUTINE - Assessment Assessment:: POD#2 - Plan Plan:: * Routine cares * Breast feeding * Continue PNV on discharge, appropriate post op anemia * Discharge home today
--- NOTE | 2020-09-09 06:53 | PCM.DCSUM1 ---
Discharge Summary - Discharge Data Discharge Date: 09/09/20 Discharge Disposition: Home, Self-Care 01 Condition: Good - Referral to Home Health Primary Care Physician: Serenity Hallman MD - Discharge Diagnosis/Problem(s) (1) History of delivery SNOMED Code(s): 178717599 ICD Code: Z98.891 - HISTORY OF UTERINE SCAR FROM PREVIOUS SURGERY Status: Acute Current Visit: Yes (2) S/P repeat low transverse SNOMED Code(s): 851716407, 88828556, 523792930, 126253263, 134691130 ICD Code: Z98.891 - HISTORY OF UTERINE SCAR FROM PREVIOUS SURGERY Status: Acute Current Visit: Yes - Patient Summary/Data Operative Procedure(s) Performed: Repeat low transverse - Patient Instructions Diet: Regular Diet as Tolerated Activity: No Lifting Over 10 Pounds Activity, Other: Pelvic rest for 6 weeks Driving: Do Not Drive (While taking Percocet ) Showering/Bathing: May Shower, No Tub Bathing/Swimming Wound/Incision Care: Keep Operative Site/Wound Site Clean and Dry Notify Provider of: Fever, Increased Pain, Swelling and Redness, Drainage, Nausea and/or Vomiting - Discharge Plan *PRESCRIPTION DRUG MONITORING PROGRAM REVIEWED*: No *COPY OF PRESCRIPTION DRUG MONITORING REPORT IN PATIENT AGUSTIN: No Prescriptions/Med Rec: Acetaminophen/oxyCODONE [Percocet 325-5 MG] 2 tab PO Q4H PRN #25 tablet PRN Reason: Pain (Severe 7-10) Home Medications: Home Meds Pnv No.95/Ferrous Fum/Folic AC [ Tablet] 1 tab PO DAILY 10/20/16 [History] Ferrous Sulfate [Slow Fe] 1 tab PO DAILY 09/06/20 [History] Acetaminophen/oxyCODONE [Percocet 325-5 MG] 2 tab PO Q4H PRN #25 tablet 09/08/20 [Rx] Docusate Sodium [Colace] 100 mg PO Q12H PRN cap 09/08/20 [Rx] Ibuprofen [Motrin] 600 mg PO Q6H PRN tablet 09/08/20 [Rx] Referrals: Serenity Hallman MD [Primary Care Provider] - (3 weeks for check ) - Patient Data Vitals - Most Recent: Last Vital Signs Temp 37.0 C 09/09/20 03:38 Pulse 92 09/09/20 03:38 Resp 15 09/09/20 03:38 BP 115/68 09/09/20 03:38 Pulse Ox 100 09/09/20 03:38 Weight - Most Recent: 90.718 kg I&O - Last 24 hours: Intake & Output 09/08/20 09/08/20 09/09/20 14:59 22:59 06:59 Output Total 1500 Balance -1500 Lab Results - Last 24 hrs: Laboratory Results - last 24 hr 09/07/20 Range/Units 05:38 RPR Non-reactive (NONREACTIVE) Med Orders - Current: Current Medications Diphenhydramine HCl (Benadryl) 25 mg IVPUSH Q6H PRN PRN Reason: Itching or Nausea Last Admin: 09/07/20 12:14 Dose: 25 mg Documented by: Docusate Sodium (Colace) 100 mg PO Q12H PRN PRN Reason: Constipation Last Admin: 09/09/20 00:00 Dose: 100 mg Documented by: Ephedrine Sulfate (Ephedrine Sulfate) 5 mg IVPUSH SEECOMMENT PRN PRN Reason: Other Fentanyl (Sublimaze) 50 mcg IVPUSH Q5M PRN PRN Reason: pain Ibuprofen (Motrin) 600 mg PO Q6H PRN PRN Reason: mild pain or fever Last Admin: 09/09/20 05:56 Dose: 600 mg Documented by: Ondansetron HCl (Zofran) 4 mg IVPUSH ONETIME PRN PRN Reason: Nausea/Vomiting Oxycodone/Acetaminophen (Percocet 325-5 Mg) 1 tab PO Q4H PRN PRN Reason: Pain (moderate 4-6) Last Admin: 09/09/20 03:47 Dose: 1 tab Documented by: Oxycodone/Acetaminophen (Percocet 325-5 Mg) 2 tab PO Q4H PRN PRN Reason: Pain (severe 7-10) Simethicone (Simethicone) 80 mg PO Q6H PRN PRN Reason: Gas Last Admin: 09/09/20 05:56 Dose: 80 mg Documented by: Discontinued Medications Citric Acid/Sodium Citrate (Bicitra Solution) 30 ml PO ONETIME ONE Stop: 09/07/20 01:04 Last Admin: 09/07/20 07:01 Dose: 30 ml Documented by: Citric Acid/Sodium Citrate (Bicitra Solution) Confirm Administered Dose 30 ml .ROUTE .[facility] ONE Stop: 09/07/20 06:58 Last Admin: 09/07/20 23:36 Dose: Not Given Documented by: Diphenhydramine HCl (Benadryl) 25 mg IVPUSH Q6H PRN PRN Reason: itching Ephedrine Sulfate (Ephedrine Sulfate) Confirm Administered Dose 50 mg .ROUTE .[facility] ONE Stop: 09/07/20 08:23 Ephedrine Sulfate (Ephedrine Sulfate) 5 mg IVPUSH ASDIRECTED PRN PRN Reason: Hypotension Cefazolin Sodium/Dextrose 2 gm (/ Premix) 50 mls @ 100 mls/hr IV ONETIME ONE Stop: 09/07/20 01:32 Last Admin: 09/07/20 23:36 Dose: Not Given Documented by: Lactated Ringer's (Ringers, Lactated) 1,000 mls @ 125 mls/hr IV ASDIRECTED [facility] Last Admin: 09/07/20 06:00 Dose: 999 mls/hr Documented by: Oxytocin/Lactated Ringer's (Pitocin In Lr 10 Units/1,000 Ml) 10 unit in 1,000 mls @ 100 mls/hr IV ASDIRECTED [facility]; Protocol Lactated Ringer's (Ringers, Lactated) Confirm Administered Dose 1,000 mls @ as directed .ROUTE .[facility] ONE Stop: 09/07/20 07:05 Dextrose/Lactated Ringer's (Dextrose 5%-Lactated Ringers) 1,000 mls @ 125 mls/hr IV ASDIRECTED [facility] Stop: 09/07/20 17:52 Last Admin: 09/07/20 13:07 Dose: 125 mls/hr Documented by: Ketorolac Tromethamine (Toradol) 30 mg IVPUSH Q6H [facility] Stop: 09/08/20 02:31 Last Admin: 09/08/20 06:16 Dose: 30 mg Documented by: Ketorolac Tromethamine (Toradol) Confirm Administered Dose 30 mg .ROUTE .[facility] ONE Stop: 09/08/20 06:12 Last Admin: 09/08/20 06:17 Dose: Not Given Documented by: Metoclopramide HCl (Reglan) 10 mg IVPUSH ONETIME ONE Stop: 09/07/20 01:04 Last Admin: 09/07/20 07:01 Dose: 10 mg Documented by: Metoclopramide HCl (Reglan) Confirm Administered Dose 10 mg .ROUTE .STK-MED ONE Stop: 09/07/20 06:57 Last Admin: 09/07/20 23:36 Dose: Not Given Documented by: Miscellaneous Medication (Phenylephrine 1 Mg/10 Ml-Ns) Confirm Administered Dose 1 mg .ROUTE .STK-MED ONE Stop: 09/07/20 08:23 Morphine Sulfate (Duramorph Pf) Confirm Administered Dose 10 mg .ROUTE .STK-MED ONE Stop: 09/07/20 07:05 Ondansetron HCl (Zofran) Confirm Administered Dose 4 mg .ROUTE .STK-MED ONE Stop: 09/07/20 07:05 Oxytocin (Pitocin) Confirm Administered Dose 10 unit .ROUTE .STK-MED ONE Stop: 09/07/20 07:05 Simethicone (Simethicone) 160 mg PO ONETIME ONE Stop: 09/08/20 18:06 Last Admin: 09/08/20 18:49 Dose: 160 mg Documented by: Sodium Chloride (Saline Flush) 10 ml FLUSH ASDIRECTED PRN PRN Reason: Keep Vein Open
== END 2020-09-09 11:10 | disposition home or self-care (01) | DRG 540 ==
LOC: JD.OB 05:27
PROVIDERS: ADMIT Obstetrics & Gynecology; ATTEND Obstetrics & Gynecology
PROC: 10D00Z1 Extraction of Products of Conception, Low, Open Approach (ICD-10-PCS; principal; 2020-09-07)
DX: O34.211 Maternal care for low transverse scar from previous cesarean delivery (principal); Z37.0 Single live birth; Z3A.39 39 weeks gestation of pregnancy
CPT/HCPCS: 01961; 36415; 59025; 85025; 85027; 86592; 86850; 86900; 86901; 94762; A9270-GY; J1200; J1885; J2270; J2370; J2405; J2590; J2765; J7120; J7121